=== PATIENT | male | born 1935 | race Caucasian/White ===

== ENCOUNTER 2019-10-22 14:20 | Inpatient (IN) | payer MEDICARE, MEDICAID, SELFPAY ==
[2019-10-22] VITALS (10 sets, daily range): BP systolic 103–143; BP diastolic 65–95; PULSE 80–94; RESP 15–30; TEMP 36.4–36.9; O2SAT 94–99; BMI 28.3
--- NOTE | 2019-10-22 14:23 | ED_ITS ---
Entered by Kathy Norris, acting as scribe for HPI - Weakness General: Chief complaint: General Medical, Adult Stated complaint: WEAKNESS Time Seen by Provider: 10/22/19 14:21 Source: EMS Mode of arrival: EMS History of Present Illness: HPI Narrative: per nurse the pt has had increased weakness and fatigue. pt has had a UTI per [facility] and health has been declining. pt was sent to the ED for a check up and for a UTI by nursing staff. [facility] staff denies any other symptoms. MD Complaint: generalized weakness Onset (ago): day(s) (yesterday) Duration: progressively worsening Location: generalized Severity: moderate Relieving factors: none Exacerbating factors: movement and exertion Associated symptoms: Denies chest pain, chills, easy bruising, fever(s), headache(s), nausea or vomiting Review of Systems Const: Reports: fatigue Eyes: Denies: change in vision ENMT: Denies: throat pain or mouth pain Card: Denies: chest pain Resp: Denies: shortness of breath GI: Denies: abdominal pain or diarrhea Musc: Denies: back pain or joint pain Skin/Breast: Denies: rash Neuro: Denies: behavioral changes Psych: Denies: depression Endo: Denies: excessive urination Jay[place]/Lymph: Denies: easy bruising All/Imm: Denies: hives PFSH ED PFSH: Statuses (acute, chronic, etc) shown below reflect problem list status as previously entered and may not be historically accurate Social History Smoking and tobacco status: former smoker Physical Exam Const: COMMON NORMALS: no apparent distress; negative for oriented x3 (orientated to self) EXAM LIMITATIONS: altered mental status HENMT: COMMON NORMALS: normocephalic and external nose normal HEAD & SCALP: normocephalic NOSE: external nose normal and no nasal discharge (nasal dischage) Eye: COMMON NORMALS: PERRL PUPIL: Yes PERRL Neck/C-Spine: COMMON NORMALS: full ROM and no lymphadenopathy Chest: COMMONS NORMALS: inspection of chest normal Resp: COMMON NORMALS: normal respiratory effort and clear to auscultation bilaterally AUSCULTATION: clear to auscultation bilaterally Cardio: COMMON NORMALS: regular rate and regular rhythm RATE: regular rate RHYTHM: regular rhythm GI: COMMON NORMALS: soft to palpation PALPATION: Yes soft Extremity: COMMON NORMALS: normal to inspection, full ROM and normal capillary refill Neuro: COMMON NORMALS: negative for oriented x3 (orientated to self) Psych: COMMON NORMALS: mental status grossly normal and cooperative Skin: COMMON NORMALS: no rashes or lesions noted GENERAL SKIN EXAM: no rashes or lesions noted Course Vital Signs: Vital signs: Vital Signs Temperature 97.6 F 10/22/19 14:21 Pulse Rate 84 10/22/19 16:17 Respiratory Rate 15 10/22/19 16:17 Blood Pressure 128/86 10/22/19 16:17 Pulse Oximetry 94 10/22/19 16:17 MDM - Weakness MDM Narrative: Medical decision making narrative: Patient presents here with altered mental status along with low-grade fever from [facility]. Patient has elevated white count and possible pneumonia. Patient started on Levaquin IV here and I spoke to hospitalist who will admit. Lab Data: Labs: Lab Results 10/22/19 10/22/19 10/22/19 Range/Units 14:36 14:36 14:55 WBC 15.3 H (4.0-10.0) 10^3/ uL RBC 2.57 L (4.1-5.3) 10^6/u L Hgb 7.4 L (11.7-16.6) g/dL Hct 25.5 L (42.0-52.0) % MCV 99.2 H (80-94) fL MCH 28.8 (28.0-34.0) pg MCHC 29.0 L (30.0-36.0) g/dL RDW 17.2 H (12.1-15.1) % Plt Count 238 (130-400) 10^3/c mm MPV 11.6 H (7.4-10.4) fL Neut % (Auto) 92.4 % Lymph % (Auto) 3.2 % [place] % (Auto) 3.5 % Eos % (Auto) 0.0 % Baso % (Auto) 0.1 % Neut # (Auto) 14.1 H (1.8-7.7) 10^3/u L Lymph # (Auto) 0.5 L (0.8-4.8) 10^3/u L [place] # (Auto) 0.5 (0.2-0.9) 10^3/u L Eos # (Auto) 0.0 (0.0-0.8) 10^3/u L Baso # (Auto) 0.0 (0.0-0.1) 10^3/u L Nucleated RBC % (a uto) 0.1 % Nucleated RBCs # 0.0 /100WBC Sodium 139 (136-145) mmol/L Potassium 4.0 (3.5-5.1) mmol/L Chloride 105 (98-107) mmol/L Carbon Dioxide 22 (22-29) mmol/L Anion Gap 16.0 (5-19) BUN 34 H (8-23) mg/dL Creatinine 1.3 H (0.7-1.2) mg/dL Glucose 136 H (74-106) mg/dL Calcium 9.0 (8.8-10.2) mg/Dl Total Bilirubin 1.0 (0.15-1.2) mg/dL AST 16 (0-40) U/L ALT 7 (0-41) U/L Alkaline Phosphata se 93 (40-130) IU/L Total Protein 6.8 (6.6-8.7) g/dL Albumin 2.8 L (3.5-5.2) g/dL Globulin 4.0 (1.3-4.6) g/dL Urine Color Yellow (Yellow) Urine Appearance Hazy A (CLEAR) Urine pH 5 (5-7) Ur Specific Gravit y 1.025 (1.005-1.030) Urine Protein 1+ H (Negative) Urine Glucose (UA) Norm (Normal) Urine Ketones 1+ H (Negative) Urine Occult Blood 3+ H (Negative) Urine Nitrate Negative (Negative) Urine Bilirubin Neg (NEGATIVE) Urine Urobilinogen Norm (Negative) mg/dL Ur Leukocyte Armida ase 2+ H (Negative) Urine RBC 15-25 H (0-2) /hpf Urine WBC 80-100 H (0-5) /hpf Ur Squamous Epith Cells 0-4 H (0-5) Urine Bacteria 2+ H (NONE) Urine Mucus 1+ Influenza Type A A g (Negative) POC Influenza B Ag (Negative) 10/22/19 Range/Units 15:23 WBC (4.0-10.0) 10^3/ uL RBC (4.1-5.3) 10^6/u L Hgb (11.7-16.6) g/dL Hct (42.0-52.0) % MCV (80-94) fL MCH (28.0-34.0) pg MCHC (30.0-36.0) g/dL RDW (12.1-15.1) % Plt Count (130-400) 10^3/c mm MPV (7.4-10.4) fL Neut % (Auto) % Lymph % (Auto) % [place] % (Auto) % Eos % (Auto) % Baso % (Auto) % Neut # (Auto) (1.8-7.7) 10^3/u L Lymph # (Auto) (0.8-4.8) 10^3/u L [place] # (Auto) (0.2-0.9) 10^3/u L Eos # (Auto) (0.0-0.8) 10^3/u L Baso # (Auto) (0.0-0.1) 10^3/u L Nucleated RBC % (a uto) % Nucleated RBCs # /100WBC Sodium (136-145) mmol/L Potassium (3.5-5.1) mmol/L Chloride (98-107) mmol/L Carbon Dioxide (22-29) mmol/L Anion Gap (5-19) BUN (8-23) mg/dL Creatinine (0.7-1.2) mg/dL Glucose (74-106) mg/dL Calcium (8.8-10.2) mg/Dl Total Bilirubin (0.15-1.2) mg/dL AST (0-40) U/L ALT (0-41) U/L Alkaline Phosphata se (40-130) IU/L Total Protein (6.6-8.7) g/dL Albumin (3.5-5.2) g/dL Globulin (1.3-4.6) g/dL Urine Color (Yellow) Urine Appearance (CLEAR) Urine pH (5-7) Ur Specific Gravit y (1.005-1.030) Urine Protein (Negative) Urine Glucose (UA) (Normal) Urine Ketones (Negative) Urine Occult Blood (Negative) Urine Nitrate (Negative) Urine Bilirubin (NEGATIVE) Urine Urobilinogen (Negative) mg/dL Ur Leukocyte Armida ase (Negative) Urine RBC (0-2) /hpf Urine WBC (0-5) /hpf Ur Squamous Epith Cells (0-5) Urine Bacteria (NONE) Urine Mucus Influenza Type A A g Negative (Negative) POC Influenza B Ag Negative (Negative) EKG Data^: EKG 1: Attestation: I personally reviewed and interpreted this EKG as follows: EKG interpretation date: 10/22/19 EKG interpretation time: 14:35 Interpretation: Heart rate [address] with no ST or T wave abnormalities QRS 105 QTC 409 Discharge Plan Discharge Patient Disposition: Admitted As Inpatient Clinical Impression: Pneumonia Qualifiers: Pneumonia type: due to unspecified organism Laterality: bilateral Lung location: unspecified part of lung Qualified Code(s): J18.9 - Pneumonia, unspecified organism Altered mental status Qualifiers: Altered mental status type: unspecified Qualified Code(s): R41.82 - Altered mental status, unspecified Condition: Stable Referrals: Lucy Nuñez MD [Primary Care Provider] - Coding Level of Care Code ED Anthropology And Archeology Instructor for Chg Fwd Exam Problem Focused The documentation recorded by the Jr west Bridget Annette, accurately reflects the service I personally performed and the decisions made by , Aamir Gimenez MD
--- NOTE | 2019-10-22 14:24 | ECG_ITS ---
Measurements Intervals [place] Rate: 87 P: NC: 0 QRS: -27 QRSD: 105 T: 59 QT: 365 QTc: 440 ATRIAL FIBRILLATION BORDERLINE LEFT AXIS DEVIATION [QRS AXIS < -20] NONSPECIFIC T-WAVE ABNORMALITY Compared to ECG 07/10/2019 20:25:09 T-wave abnormality now present Ventricular premature complex(es) no longer present Aberrant conduction of supraventricular beat(s) no longer present ST (T wave) deviation no longer present Electronically Signed On 10-23-2019 5:58:06 NEUROPSYCHIATRIC AIDE by Isa Cespedes M.D. [email or web address]
--- NOTE | 2019-10-22 14:24 | XRR_ITS ---
PROCEDURE INFORMATION: Exam: XR Chest, 1 View Exam date and time: 10/22/2019 2:25 PM Age: 84 years old Clinical indication: Other: Weakness TECHNIQUE: Imaging protocol: XR of the chest Views: 1 view. COMPARISON: CR Chest 1 [place] [id number] 07/10/2019 2:35 PM FINDINGS: Lungs: Nonspecific bibasilar consolidation is present, consistent with atelectasis, scarring, edema, or recurrent pneumonia. The appearance is similar to the prior exam. Pleural space: Small right pleural effusion versus pleural thickening is unchanged. Heart/Mediastinum: The heart is enlarged. Bones/joints: Osteopenia, degenerative changes and probable old fracture of the right humerus are noted. XR/XR chest 1V portable [id number] IMPRESSION: Nonspecific bibasilar consolidation is present, consistent with atelectasis, scarring, edema, or recurrent pneumonia. The appearance is similar to the prior exam.
[2019-10-22 14:41] LABS: Basophils % 0.1 %; Hematocrit 25.5 % (42.0-52.0); Hemoglobin 7.4 g/dL (11.7-16.6); Lymphocytes # 0.5 10^3/uL (0.8-4.8); Lymphocytes % 3.2 %; Mean Corpuscular Hemoglobin 28.8 pg (28.0-34.0); Mean Corpuscular Volume 99.2 fL (80-94); Mean Platelet Volume 11.6 fL (7.4-10.4); Monocytes # 0.5 10^3/uL (0.2-0.9); Monocytes % 3.5 %; Neutrophils # 14.1 10^3/uL (1.8-7.7); Neutrophils % 92.4 %; Nucleated Red Blood Cells % 0.1 %; Platelet Count 238 10^3/cmm (130-400); Red Blood Count 2.57 10^6/uL (4.1-5.3); Red Cell Distribution Width 17.2 % (12.1-15.1); White Blood Count 15.3 10^3/uL (4.0-10.0)
[2019-10-22] MEDS: sodium chloride 0.9% 500 ML IV (14:55)
[2019-10-22 14:56] LABS: Alanine Aminotransferase 7 U/L (0-41); Albumin Level 2.8 g/dL (3.5-5.2); Alkaline Phosphatase 93 IU/L (40-130); Aspartate Amino Transferase 16 U/L (0-40); Blood Urea Nitrogen 34 mg/dL (8-23); Carbon Dioxide 22 mmol/L (22-29); Chloride 105 mmol/L (98-107); Glucose 136 mg/dL (74-106); Sodium 139 mmol/L (136-145); Total Protein 6.8 g/dL (6.6-8.7)
--- NOTE | 2019-10-22 15:08 | PC.NURSE ---
Patient is not oriented to person,time,place,or situation.
--- NOTE | 2019-10-22 15:19 | PC.NURSE ---
Green discharge around left eyelid
--- NOTE | 2019-10-22 15:29 | PC.NURSE ---
Patient to CT via stretche
[2019-10-22 15:57] LABS: Influenza A by IFA Negative (Negative); Influenza B by IFA Negative (Negative)
--- NOTE | 2019-10-22 15:58 | CTR_ITS ---
PROCEDURE INFORMATION: Exam: CT Head Without Contrast Exam date and time: 10/22/2019 4:49 PM Age: 84 years old Clinical indication: Altered mental status/memory loss; Confusion or disorientation; Additional info: AMS TECHNIQUE: Imaging protocol: Computed tomography of the head without contrast. Total DLP: 1508.68 mGy-cm Radiation optimization: All CT scans at this facility use at least one of these dose optimization techniques: automated exposure control; mA and/or kV adjustment per patient size (includes targeted exams where dose is matched to clinical indication); or iterative reconstruction. COMPARISON: CT head wo con* [id number] 07/10/2019 2:11 PM FINDINGS: Brain: Stable diffuse volume loss and periventricular low-density compatible with small vessel disease change. No hemorrhage. No new white matter abnormality. No mass effect. Ventricles: Normal. No ventriculomegaly. Bones/joints: Unremarkable. No acute fracture. Sinuses: There is a small mucous retention cyst in the right maxillary sinus. Mastoid air cells: Visualized mastoid air cells are well aerated. Soft tissues: Unremarkable. CT/CT head wo con* [id number] IMPRESSION: No acute intracranial abnormality. Radiation Dose CTDIVOL = (mGy): DLP = 1508.68 (mGy-cm)
[2019-10-22 15:59] LABS: Specific Gravity, Urine 1.025 (1.005-1.030); Urine Appearance Hazy (CLEAR); Urine Color Yellow (Yellow); pH Urine 5 (5-7)
[2019-10-22 16:00] LABS: Bilirubin Urine Neg (NEGATIVE); Blood Urine 3+ (Negative); Glucose Urine UA Norm (Normal); Ketones Urine 1+ (Negative); Leukocyte Esterase Urine 2+ (Negative); Nitrate Urine Negative (Negative); Protein Urine 1+ (Negative); Urobilinogen Urine Norm (Negative)
[2019-10-22 16:01] LABS: RBC Urine 15-25 /hpf (0-2); WBC Urine 80-100 /hpf (0-5)
[2019-10-22 16:02] LABS: Add Urine Culture? Yes; Bacteria Urine 2+; Mucus Urine 1+; Squamous Epithelial Cell Urine 0-4 (0-5)
--- NOTE | 2019-10-22 16:44 | PC.NURSE ---
Patient to CT via stretcher
--- NOTE | 2019-10-22 18:21 | PC.NURSE ---
AGREE WITH ASSESSMENT
[2019-10-22] MEDS: lactated ringers 1,000 ML 100 ML IV (20:53)
[2019-10-22] MEDS: pantoprazole 40 mg SDV IVP (20:53)
--- NOTE | 2019-10-22 21:17 | P.HP_ITS ---
Providers/Chief Complaint Admitting Physician: Trenton Bahena MD Primary Care Provider: Lucy Nuñez MD Chief Complaint: WEAKNESS History of Present Illness Paul Ramsay is a 84 year old male with a past medical history of intertrochanteric right hip fracture in July 10, 2019, dementia, chronic Perez due to chronic urinary retention, chronic UTIs, history of staghorn calculus with risk of pyelonephritis, history of ESBL E. coli UTI, atrial fibrillation on Eliquis, chronic anemia, chronic back pain, right diaphragmatic hernia, who presents to the emergency room from [facility] due to concerns of altered mental status. Most of the history was provided [facility], asked during examination patient was alert oriented x0, all he complained was suprapubic pain. 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 He had a fall on 10/16/2019, fell to the floor, no head trauma. He since October 15 2019 has been on Macrobid for a UTI. Patient's nurse states that for the last 24 hours, patient has been more confused, decrease in his physical functioning, has been less sociable, has been much more weak, poor appetite. No complaints of shortness of breath. No complaints of chest pain. No falls in the last few days. No fevers. No chills. No bloody or black stools. Review of Systems Const: Reports: fatigue; Denies: fever or chills ENMT: Denies: nasal discharge Card: Reports: chest pain Resp: Denies: shortness of breath or productive cough GI: Reports: abdominal pain; Denies: nausea or vomiting : Denies: flank pain or difficulty urinating Musc: Denies: neck pain or back pain Skin/Breast: Denies: rash Neuro: Reports: weakness in extremities and difficulty walking [place]/Lymph: Denies: easy bruising Medications/Allergies Home Medications Medication Instructions Recorded Confirmed Last Taken Type apixaban [Eliquis] 2.5 mg PO BID 10/22/19 10/22/19 10/22/19 08:00 History citalopram [Celexa] 10 mg PO DAILY 10/22/19 10/22/19 10/22/19 08:00 History metoprolol tartrate 50 mg PO BID 10/22/19 10/22/19 10/22/19 08:00 History nitrofurantoin monohyd/m-cryst 100 mg PO BID 10/22/19 10/22/19 10/22/19 09:00 History [Macrobid] nut.tx,spec.frm,l-fr,iron-fos 90 ea PO DAILY 10/22/19 10/22/19 10/22/19 08:00 History [TwoCal HN] Allergies Allergy/AdvReac Type Severity Reaction Status Date / Time morphine Allergy Unknown Verified 10/22/19 14:28 PFSH Acute PFSH: Statuses (acute, chronic, etc) shown below reflect problem list status as previously entered and may not be historically accurate Medical History (Updated 10/22/19 @ 21:27 by Trenton Bahena MD) Atrial fibrillation (Acute) History of ESBL E. coli infection (Acute) Moderate aortic stenosis (Acute) Staghorn calculus (Acute) Vertebral compression fracture (Acute) Surgical History (Updated 10/22/19 @ 21:28 by Trenton Bahena MD) History of open reduction and internal fixation (ORIF) procedure (Acute) Social History Smoking and tobacco status: former smoker Supplemental PFSH Information: Unable to obtain family history as patient is confused Vitals/I&O/Wt Last Vital Signs Temp 98.5 F 10/22/19 20:00 Pulse 83 10/22/19 20:00 Resp 30 H 10/22/19 20:00 BP 103/71 10/22/19 20:00 Pulse Ox 95 10/22/19 20:00 10/22/19 10/22/19 10/22/19 06:59 14:59 22:59 Intake Total 6.667 / 6.667 Balance 6.667 / 6.667 Weight last 48 hrs Weight 74.843 kg Physical Exam Const: COMMON NORMALS: no apparent distress EXAM LIMITATIONS: altered mental status GENERAL APPEARANCE: cooperative HENMT: COMMON NORMALS: normocephalic Eye: COMMON NORMALS: PERRL Neck/C-Spine: COMMON NORMALS: full ROM and no lymphadenopathy Lymph: LYMPHATIC: no lymphadenopathy noted Chest: COMMONS NORMALS: inspection of chest normal Resp: COMMON NORMALS: normal respiratory effort, no retractions, no use of accessory muscles, clear to auscultation bilaterally and percussion normal Cardio: COMMON NORMALS: no JVD, regular rate, regular rhythm, S1 normal heart sound and S2 normal heart sound GI: COMMON NORMALS: normal to inspection, nondistended, normoactive bowel sounds and soft to palpation PALPATION: Yes tender (Patient is tender above the bladder) : COMMON NORMALS: Yes no CVA tenderness Back/Pelvis: COMMON NORMALS: no CVA tenderness Extremity: COMMON NORMALS: normal capillary refill, no clubbing, cyanosis or edema and no pedal edema Neuro: COMMON NORMALS: oriented x3, CN's II-XII intact bilaterally, moves all extremities and no focal motor deficits Psych: COMMON NORMALS: mental status grossly normal and thought process normal Sepsis: Is patient septic: No Focused sepsis exam performed: Yes Data Imaging^: CT Head: Radiologist's impression: Brain: Stable diffuse volume loss and periventricular low-density compatible with small vessel disease change. No hemorrhage. No new white matter abnormality. No mass effect. Ventricles: Normal. No ventriculomegaly. Bones/joints: Unremarkable. No acute fracture. Sinuses: There is a small mucous retention cyst in the right maxillary sinus. Mastoid air cells: Visualized mastoid air cells are well aerated. Soft tissues: Unremarkable. CXR: Radiologist's impression: Nonspecific bibasilar consolidation is present, consistent with atelectasis, scarring, edema, or recurrent pneumonia. The appearance is similar to the prior exam. A&P Assessment and plan (1) Altered mental status: Altered mental status likely secondary to multidrug-resistant UTI, chronic Perez, history of MDRO UTIs, with history of staghorn colliculi. Has high risk of pyelonephritis. -Chest x-ray shows possible pneumonia bibasilar -White blood cell count 15.3 Plan: -Gentle IV hydration, given moderate aortic stenosis -Primaxin, vancomycin -Follow urine cultures, follow blood cultures -Monitor mental status closely Status: Acute Qualifiers: Altered mental status type: unspecified Qualified Code(s): R41.82 - Altered mental status, unspecified Code(s): R41.82 - Altered mental status, unspecified (2) Anemia: -Hemoglobin 7.4 -No obvious source of bleeding Plan: -Transfuse 1 unit PRBC -Monitor hemoglobin -Hemoccult stool -Hold Eliquis Status: Acute Code(s): D64.9 - Anemia, unspecified (3) Atrial fibrillation: Telemetry monitoring Continue rate control Status: Acute Code(s): I48.91 - Unspecified atrial fibrillation (4) History of ESBL E. coli infection: Status: Acute Code(s): Z86.19 - Personal history of other infectious and parasitic diseases (5) Pneumonia: Status: Acute Qualifiers: Laterality: bilateral Lung location: unspecified part of lung Pneumonia type: due to unspecified organism Qualified Code(s): J18.9 - Pneumonia, unspecified organism Code(s): J18.9 - Pneumonia, unspecified organism (6) Urinary tract infection: Status: Acute Code(s): N39.0 - Urinary tract infection, site not specified (7) Staghorn calculus: Status: Acute Code(s): N20.0 - Calculus of kidney (8) Vertebral compression fracture: Status: Acute Code(s): M48.50XA - Collapsed vertebra, not elsewhere classified, site unspecified, initial encounter for fracture (9) Moderate aortic stenosis: Gentle IV hydration Status: Acute Code(s): I35.0 - Nonrheumatic aortic (valve) stenosis Attestations Medical Necessity Statement*: Patient requires hospitalization, greater than 2 midnights, for altered mental status secondary to UTI and pneumonia Coding Level of Care Code Acute Intern Retail for Chg Fwd Diagnoses Altered mental status R41.82 Altered mental status type: unspecified Anemia D64.9 Atrial fibrillation I48.91 History of ESBL E. coli infection Z86.19 Pneumonia J18.9 Laterality: bilateral Lung location: unspecified part of lung Pneumonia type: due to unspecified organism Urinary tract infection N39.0 Staghorn calculus N20.0 Vertebral compression fracture M48.50XA Moderate aortic stenosis I35.0 Sepsis Event Note Evaluation Current stage of sepsis: sepsis Focused Exam Vital Signs Temp Pulse Pulse Resp BP BP Pulse Ox 10/22/19 20:00 98.5 F 83 30 H 103/71 95 10/22/19 18:46 80 18 118/79 95 10/22/19 16:17 84 15 128/86 94 10/22/19 15:00 82 15 143/87 96 10/22/19 14:23 88 15 112/65 96 01/05/20 14:21 97.6 F 92 15 112/65 96 Date exam was performed: 10/22/19 Time exam was performed: 21:31 Sepsis Evaluation Sepsis screening result: No Definite Risk Current stage of sepsis: sepsis Possible source: pulmonary, genitourinary and other (UTI) Focused Exam Vital Signs Temp Pulse Pulse Resp BP BP Pulse Ox 10/22/19 20:00 98.5 F 83 30 H 103/71 95 10/22/19 18:46 80 18 118/79 95 10/22/19 16:17 84 15 128/86 94 10/22/19 15:00 82 15 143/87 96 10/22/19 14:23 88 15 112/65 96 10/22/19 14:21 97.6 F 92 15 112/65 96 Respiratory exam: Absent accessory muscle use Cardiovascular exam: Present S1 and S2; Absent tachycardia Capillary refill: > 3 Seconds Peripheral pulse strength: 3+ Normal Peripheral pulse location: Pedal Skin exam: normal turgor Date exam was performed: 10/22/19 Time exam was performed: 21:33
[2019-10-22 22:03] LABS: Iron 24 ug/dL (59-158); Percent Saturation 18.6 % (20-50); Total Iron Binding Capacity 129 mg/dL; Unsaturated Iron Binding 105 ug/dL (112-347)
[2019-10-22 22:19] LABS: Vitamin B12 1066 pg/mL (232-1245)
[2019-10-22 22:26] LABS: Ferritin 1237 ng/mL (30-400)
--- NOTE | 2019-10-22 23:44 | PC.RESP ---
nothing needed at this time. no respiratory distress noted at this time
[2019-10-23] VITALS (9 sets, daily range): BP systolic 123–162; BP diastolic 65–97; PULSE 82–100; RESP 18–28; TEMP 36.6–37.3; O2SAT 95–99
[2019-10-23] MEDS: acetaminophen 325 mg Tablet 650 MG PO ×2 (04:47→12:21)
[2019-10-23 06:10] LABS: Basophils % 0.1 %; Hematocrit 31.3 % (42.0-52.0); Hemoglobin 9.5 g/dL (11.7-16.6); Lymphocytes # 0.3 10^3/uL (0.8-4.8); Lymphocytes % 1.7 %; Mean Corpuscular HGB Conc 30.4 g/dL (30.0-36.0); Mean Corpuscular Volume 98.7 fL (80-94); Mean Platelet Volume 11.2 fL (7.4-10.4); Monocytes # 0.6 10^3/uL (0.2-0.9); Monocytes % 2.9 %; Neutrophils # 18.4 10^3/uL (1.8-7.7); Neutrophils % 94.5 %; Nucleated Red Blood Cells % 0.1 %; Platelet Count 220 10^3/cmm (130-400); Red Blood Count 3.17 10^6/uL (4.1-5.3); Red Cell Distribution Width 17.2 % (12.1-15.1); White Blood Count 19.4 10^3/uL (4.0-10.0)
[2019-10-23 06:24] LABS: Lactic Sepsis W/Reflex 3.1 mmol/L (0.5-2.2)
[2019-10-23 06:28] LABS: Alanine Aminotransferase 7 U/L (0-41); Albumin Level 2.5 g/dL (3.5-5.2); Alkaline Phosphatase 106 IU/L (40-130); Anion Gap 20.8 (5-19); Aspartate Amino Transferase 17 U/L (0-40); Blood Urea Nitrogen 36 mg/dL (8-23); Calcium 8.8 mg/Dl (8.8-10.2); Carbon Dioxide 20 mmol/L (22-29); Chloride 107 mmol/L (98-107); Globulin 4.8 g/dL (1.3-4.6); Glucose 114 mg/dL (74-106); Magnesium 2.6 mg/dL (1.7-2.3); Potassium 3.8 mmol/L (3.5-5.1); Sodium 144 mmol/L (136-145); Total Bilirubin 1.4 mg/dL (0.15-1.2); Total Protein 7.3 g/dL (6.6-8.7)
[2019-10-23 07:13] LABS: Procalcitonin 2.31 ng/mL (0-0.8)
[2019-10-23] MEDS: pantoprazole 40 mg SDV IVP ×2 (07:35→19:05)
[2019-10-23] MEDS: TRAMadol 50 mg Tablet PO (07:38)
[2019-10-23 07:54] LABS: Reflex Lactate Order Y
--- NOTE | 2019-10-23 08:00 | CT_ITS ---
WS: [id number] CT ABDOMEN PELVIS TECHNIQUE: Noncontrast CT of the abdomen and pelvis with coronal and sagittal reformatted images. CLINICAL INFORMATION: RLQ pain COMPARISON: None. DLP: 1361.[address] scans at [facility] use at least one of these dose optimization techniques: automat ed exposure control; mA and/or kV adjustment per patient size (includes targeted exams where dose is matched to clinical indication); or iterative reconstruction. FINDINGS: Noncontrast liver is normal. Cholelithiasis. Small moderate right and small left pleural effusions wi th bibasilar atelectasis. Vascular calcification including coronary. Adrenal glands are normal. Bilateral renal cortical atrophy. Bilateral renal cysts. Right renal pelvi s staghorn type calculus measuring 2.6 x 1.9 cm with chronic appearing obstruction. Moderate chronic appearing right hydronephrosis with dilatation of the renal pelvis. Additional smaller nonobstructing right renal calculi. Tiny nonobstructing left renal parenchymal subcentimeter calculi. Both mid and distal ureters are decompressed. Perez catheter. Dorsal bladder calculus measuring 2.5 cm. Tortuous calcified abdominal aorta. Ectatic common iliac arteries. 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 Pancreatic fatty atrophy. Noncontrast spleen is unremarkable. No free fluid in the pelvis. 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 Diverticulosis. No evidence of acute diverticulitis. Air and fluid-filled loops of small bowel. No evidence of high-grade obstruction. Small amount of per ihepatic ascites. Diffuse ankylosis thoracic and lumbar spine. Osteopenia. Chronic compression of the T12 and L1 vertebral bodies. Chronic right rib fractures with callus formation at the costovertebral junction. Prior postoperative changes intramedullary fernando and screw fixation right hip. CT/CT abdomen pelvis wo con [id number] IMPRESSION: 1. Cholelithiasis. This can be further evaluated with ultrasound. 2. Chronic appearing obstruction right kidney with staghorn type calculus at t he right UPJ described above. Dilatation of the right renal pelvis with moderat e right hydronephrosis. Diffuse cystic change right kidney. Cortical atrophy bi laterally. 3. Both ureters are decompressed. Perez catheter in place. Additional dorsal b ladder calculus measuring 2.4 CM. 4. Small moderate right and small left pleural effusions with bibasilar atelec tasis. 5. 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 6. Diverticulosis. 7. Small amount of perihepatic ascites. 8. Scattered air and fluid in slightly dilated small bowel likely due to ileus . No evidence of high-grade obstruction.
[2019-10-23] MEDS: metoprolol tartrate 50 mg Tablet PO ×2 (10:27→19:05)
[2019-10-23] MEDS: citalopram 20 mg Tablet 10 MG PO (10:27)
[2019-10-23] MEDS: morphine 4 mg/mL SDV 1 mL 1 MG IV (12:40)
[2019-10-23 14:04] LABS: Lactate (Lactic Acid level) 1.5 mmol/L (0.5-2.2)
[2019-10-23 14:42] LABS: Hematocrit 28.1 % (42.0-52.0); Hemoglobin 8.6 g/dL (11.7-16.6)
--- NOTE | 2019-10-23 16:08 | PC.PT ---
Addendum entered by Herman Allan II 10/23/19 16:15: Discussed previous functional level with [facility]. Nursing states 2 person stand pivot assist bed to wheelchair - wheelchair to bed. Pt has poor rehab potential. No further physical therapy at this time. Original Note: Pt tolerated therapy session with increased R heel tenderness and B knee pain with movement from supine to sitting of edge of bed. Mod assist with transfers. Pillow placed under lower leg to reduce pressure on R heel and between knees while in L side lying. Left in bed with call button and table at side and within reach.
--- NOTE | 2019-10-23 19:45 | P.PN_ITS ---
Subjective Subjective: Interval history: This morning, patient is much more alert and awake today, alert oriented x2, states that his knee is hurting him, denies fevers, denies chills, denies nausea denies vomiting,, denies chest pain, denies palpitations Overnight patient remained normotensive, afebrile, respiratory rate within normal range, saturating in the high 90s on room air, neutrophilic leukocytosis has worsened to 19.4, anion stable at 1.3, procalcitonin 2.31, status post 1 unit PRBC hemoglobin stable at 8.6, had one large black bloody bowel movement Vitals/I&O/Wt Last Vital Signs Temp 98.6 F 10/23/19 19:40 Pulse 91 10/23/19 19:40 Resp 22 H 10/23/19 19:40 BP 162/89 10/23/19 19:40 Pulse Ox 97 10/23/19 19:40 10/23/19 10/23/19 10/23/19 06:59 14:59 22:59 Intake Total 866.667 / 973.334 733.333 / 733.333 Output Total 250 / 450 Balance 616.667 / 523.334 733.333 / 733.333 Weight last 48 hrs Weight 74.843 kg Physical Exam Const: COMMON NORMALS: no apparent distress GENERAL APPEARANCE: cooperative HENMT: COMMON NORMALS: normocephalic HEAD & SCALP: normocephalic Neck/C-Spine: COMMON NORMALS: no JVD Lymph: LYMPHATIC: no lymphadenopathy noted Chest: COMMONS NORMALS: inspection of chest normal Resp: COMMON NORMALS: normal respiratory effort, no retractions, no use of accessory muscles, clear to auscultation bilaterally and percussion normal AUSCULTATION: clear to auscultation bilaterally PERCUSSION: percussion normal Cardio: COMMON NORMALS: no JVD, regular rate, regular rhythm, S1 normal heart sound and S2 normal heart sound RATE: regular rate RHYTHM: regular rhythm HEART SOUNDS: S1 normal and S2 normal GI: COMMON NORMALS: normal to inspection, nondistended, normoactive bowel sounds and soft to palpation PALPATION: Yes soft and Yes tender (Patient is tender above the bladder) Extremity: COMMON NORMALS: normal capillary refill, no clubbing, cyanosis or edema and no pedal edema Data Micro: Micro: Microbiology 10/22/19 22:32 Blood Culture - Pr eliminary Blood SPECIMEN [facility] 10/22/19 22:37 Blood Culture - Pr eliminary Blood SPECIMEN [facility] A&P Assessment and plan (1) Altered mental status: Altered mental status likely secondary to multidrug-resistant UTI, chronic Perez, history of MDRO UTIs, with history of staghorn colliculi. Has high risk of pyelonephritis. -Chest x-ray shows possible pneumonia bibasilar -White blood cell count 19.4, neutrophil leukocytosis, pro-Fernando 2.31 Plan: -Decrease hydration to 50 cc an hour, given moderate aortic stenosis -Continue Primaxin, vancomycin -Follow urine cultures, follow blood cultures -Monitor mental status closely Status: Acute Qualifiers: Altered mental status type: unspecified Qualified Code(s): R41.82 - Altered mental status, unspecified Code(s): R41.82 - Altered mental status, unspecified (2) Anemia: -Hemoglobin 8.6, status post 1 unit PRBC -No obvious source of bleeding Plan: -Monitor hemoglobin -Hemoccult stool -Hold Eliquis Status: Acute Code(s): D64.9 - Anemia, unspecified (3) Atrial fibrillation: Telemetry monitoring Continue rate control Status: Acute Code(s): I48.91 - Unspecified atrial fibrillation (4) History of ESBL E. coli infection: Status: Acute Code(s): Z86.19 - Personal history of other infectious and parasitic diseases (5) Pneumonia: Status: Acute Qualifiers: Laterality: bilateral Lung location: unspecified part of lung Pneumonia type: due to unspecified organism Qualified Code(s): J18.9 - Pneumonia, unspecified organism Code(s): J18.9 - Pneumonia, unspecified organism (6) Urinary tract infection: Status: Acute Code(s): N39.0 - Urinary tract infection, site not specified (7) Staghorn calculus: Status: Acute Code(s): N20.0 - Calculus of kidney (8) Vertebral compression fracture: Status: Acute Code(s): M48.50XA - Collapsed vertebra, not elsewhere classified, site unspecified, initial encounter for fracture (9) Moderate aortic stenosis: Gentle IV hydration Status: Acute Code(s): I35.0 - Nonrheumatic aortic (valve) stenosis Attestations Medical Necessity Statement*: She requires continued hospitalization due to altered mental status secondary to UTI, pneumonia Coding Level of Care Code Acute Senior Android Developer for Chg Fwd Diagnoses Altered mental status R41.82 Altered mental status type: unspecified Anemia D64.9 Atrial fibrillation I48.91 History of ESBL E. coli infection Z86.19 Pneumonia J18.9 Laterality: bilateral Lung location: unspecified part of lung Pneumonia type: due to unspecified organism Urinary tract infection N39.0 Staghorn calculus N20.0 Vertebral compression fracture M48.50XA Moderate aortic stenosis I35.0
--- NOTE | 2019-10-23 19:48 | PC.NURSE ---
PT STATED HE WAS IN SEVER PAIN AT APPROXIMATELY 11:00 AM, THE PT HAD BEEN GIVEN TRAMADOL AT ABOUT 07:40 AM AND HE WAS STILL HAVING PAIN, THIS NURSE ASKED DR MARTINEZ IF THRERE WAS ANYTHING ELSE I COULD GIVE HIM DUE TO HIM ONLY HAVING MORPHINE OTHER THAN HIS TRAMADOL, THAT IS SCHEDULED Q8 HOURS, AND HE HAS MORPHINE AN ALLERGY. DR MARTINEZ STATED IT WAS OK TO GIVE MORPHINE, BUT TO WATCH PT CLOSELY.
[2019-10-23 20:16] LABS: Hematocrit 27.3 % (42.0-52.0); Hemoglobin 8.5 g/dL (11.7-16.6)
[2019-10-23] MEDS: lactated ringers 1,000 ML 50 ML IV (20:21)
[2019-10-23] MEDS: HYDROcodone-acetaminophen 5-325 mg Tablet 1 TAB PO (20:40)
[2019-10-24] VITALS: BP 129/76; PULSE 90; RESP 20; TEMP 36; O2SAT 94
[2019-10-24 01:59] LABS: Basophils % 0.1 %; Eosinophils % 0.1 %; Hematocrit 28.4 % (42.0-52.0); Hemoglobin 8.5 g/dL (11.7-16.6); Lymphocytes # 0.4 10^3/uL (0.8-4.8); Lymphocytes % 2.6 %; Mean Corpuscular HGB Conc 29.9 g/dL (30.0-36.0); Mean Corpuscular Hemoglobin 30.1 pg (28.0-34.0); Mean Corpuscular Volume 100.7 fL (80-94); Mean Platelet Volume 11.4 fL (7.4-10.4); Monocytes # 0.8 10^3/uL (0.2-0.9); Monocytes % 5.5 %; Neutrophils # 12.8 10^3/uL (1.8-7.7); Neutrophils % 91.2 %; Nucleated Red Blood Cells % 0.1 %; Platelet Count 179 10^3/cmm (130-400); Red Blood Count 2.82 10^6/uL (4.1-5.3); Red Cell Distribution Width 18.1 % (12.1-15.1); White Blood Count 14.1 10^3/uL (4.0-10.0)
[2019-10-24 04:00] VITALS: BP 147/73; PULSE 99; RESP 18; TEMP 36.6; O2SAT 92
[2019-10-24 05:58] LABS: Procalcitonin 1.79 ng/mL (0-0.8)
[2019-10-24 06:12] LABS: Alanine Aminotransferase 7 U/L (0-41); Albumin Level 2.2 g/dL (3.5-5.2); Alkaline Phosphatase 85 IU/L (40-130); Anion Gap 17.7 (5-19); Aspartate Amino Transferase 18 U/L (0-40); Blood Urea Nitrogen 32 mg/dL (8-23); Calcium 8.8 mg/Dl (8.8-10.2); Carbon Dioxide 20 mmol/L (22-29); Chloride 110 mmol/L (98-107); Globulin 3.9 g/dL (1.3-4.6); Glucose 120 mg/dL (74-106); Magnesium 2.2 mg/dL (1.7-2.3); Phosphorus 2.5 mg/dL (2.5-4.5); Potassium 3.7 mmol/L (3.5-5.1); Sodium 144 mmol/L (136-145); Total Protein 6.1 g/dL (6.6-8.7)
[2019-10-24] MEDS: pantoprazole 40 mg SDV IVP ×2 (06:22→18:13)
[2019-10-24 07:26] VITALS: BP 128/64; PULSE 74; RESP 18; TEMP 37; O2SAT 96
[2019-10-24 08:29] LABS: Hematocrit 29.1 % (42.0-52.0); Hemoglobin 8.8 g/dL (11.7-16.6)
[2019-10-24] MEDS: metoprolol tartrate 50 mg Tablet PO ×2 (09:08→18:13)
[2019-10-24] MEDS: citalopram 20 mg Tablet 10 MG PO (09:08)
[2019-10-24] MEDS: HYDROcodone-acetaminophen 5-325 mg Tablet 1 TAB PO ×2 (09:08→18:13)
[2019-10-24] MEDS: lactated ringers 1,000 ML 50 ML IV ×2 (09:13→22:31)
[2019-10-24 11:12] VITALS: BP 122/64; PULSE 78; RESP 16; TEMP 36.8; O2SAT 93
[2019-10-24 12:47] LABS: Vitamin B12 741 pg/mL (232-1245)
[2019-10-24 15:07] VITALS: BP 120/68; PULSE 83; RESP 22; TEMP 36.6; O2SAT 90
--- NOTE | 2019-10-24 15:25 | P.PN_ITS ---
Subjective Subjective: Interval history: This morning, patient has no significant complaints, no fevers, no chills, no nausea, no vomiting, is answering questions a bit more appropriately, has no complaint complaints this morning Over the last 24 hours he is remained afebrile, normotensive, saturating high 90s on room air, blood cultures positive for gram-positive cocci, Vitals/I&O/Wt Last Vital Signs Temp 97.9 F 10/24/19 15:07 Pulse 83 10/24/19 15:07 Resp 22 H 10/24/19 15:07 BP 120/68 10/24/19 15:07 Pulse Ox 90 10/24/19 15:07 10/24/19 10/24/19 10/24/19 06:59 14:59 22:59 Intake Total 100 / 1266.666 863.333 / 863.333 Output Total 650 / 650 125 / 125 Balance -550 / 616.666 738.333 / 738.333 Physical Exam Const: COMMON NORMALS: no apparent distress GENERAL APPEARANCE: cooperative Neck/C-Spine: COMMON NORMALS: no JVD Chest: COMMONS NORMALS: inspection of chest normal Resp: COMMON NORMALS: normal respiratory effort, no retractions, no use of accessory muscles, clear to auscultation bilaterally and percussion normal AUSCULTATION: clear to auscultation bilaterally PERCUSSION: percussion normal Cardio: COMMON NORMALS: no JVD, regular rate, regular rhythm, S1 normal heart sound and S2 normal heart sound RATE: regular rate RHYTHM: regular rhythm HEART SOUNDS: S1 normal and S2 normal GI: COMMON NORMALS: normal to inspection, nondistended, normoactive bowel sounds and soft to palpation PALPATION: Yes soft Data Micro: Micro: Microbiology 10/22/19 22:32 Blood Culture - Pr eliminary Blood Gram positive c occi 10/22/19 22:37 Blood Culture - Pr eliminary Blood Gram positive c occi 10/22/19 14:55 Urine Culture - Pr eliminary Urine,Clean Catch 10/23/19 11:00 MRSA Culture - Fin al Nose A&P Assessment and plan (1) Altered mental status: Altered mental status likely secondary to multidrug-resistant UTI, chronic Perez, history of MDRO UTIs, with history of staghorn colliculi. Has high risk of pyelonephritis. -Chest x-ray shows possible pneumonia bibasilar -White blood cell count improved to 14.1 Plan: -Decrease hydration to 50 cc an hour, given moderate aortic stenosis -Continue Primaxin, vancomycin -Follow urine cultures, follow blood cultures -Monitor mental status closely Status: Acute Qualifiers: Altered mental status type: unspecified Qualified Code(s): R41.82 - Altered mental status, unspecified Code(s): R41.82 - Altered mental status, unspecified (2) Anemia: -Hemoglobin 8.8, status post 1 unit PRBC -No obvious source of bleeding Plan: -Monitor hemoglobin -Hemoccult stool -Hold Eliquis Status: Acute Code(s): D64.9 - Anemia, unspecified (3) Atrial fibrillation: Telemetry monitoring Continue rate control Status: Acute Code(s): I48.91 - Unspecified atrial fibrillation (4) History of ESBL E. coli infection: Status: Acute Code(s): Z86.19 - Personal history of other infectious and parasitic diseases (5) Pneumonia: Status: Acute Qualifiers: Laterality: bilateral Lung location: unspecified part of lung Pneumonia type: due to unspecified organism Qualified Code(s): J18.9 - Pneumonia, unspecified organism Code(s): J18.9 - Pneumonia, unspecified organism (6) Urinary tract infection: Status: Acute Code(s): N39.0 - Urinary tract infection, site not specified (7) Staghorn calculus: Status: Acute Code(s): N20.0 - Calculus of kidney (8) Vertebral compression fracture: Status: Acute Code(s): M48.50XA - Collapsed vertebra, not elsewhere classified, site unspecified, initial encounter for fracture (9) Moderate aortic stenosis: Gentle IV hydration Status: Acute Code(s): I35.0 - Nonrheumatic aortic (valve) stenosis Attestations Medical Necessity Statement*: She requires continued hospitalization, for gram-positive bacteremia secondary to UTI pneumonia, GI bleed Coding Level of Care Code Acute Oxyacetylene Burner for Chg Fwd Diagnoses Altered mental status R41.82 Altered mental status type: unspecified Anemia D64.9 Atrial fibrillation I48.91 History of ESBL E. coli infection Z86.19 Pneumonia J18.9 Laterality: bilateral Lung location: unspecified part of lung Pneumonia type: due to unspecified organism Urinary tract infection N39.0 Staghorn calculus N20.0 Vertebral compression fracture M48.50XA Moderate aortic stenosis I35.0
[2019-10-24 15:42] LABS: Folate Level 2.2 ng/mL (4.5-32.2)
[2019-10-24 15:55] LABS: Hematocrit 27.2 % (42.0-52.0); Hemoglobin 8.1 g/dL (11.7-16.6)
[2019-10-24 20:00] VITALS: BP 137/85; PULSE 92; RESP 20; TEMP 36.7; O2SAT 97
[2019-10-24 20:03] LABS: Hematocrit 28.4 % (42.0-52.0); Hemoglobin 8.5 g/dL (11.7-16.6)
[2019-10-25] VITALS: BP 137/84; PULSE 89; RESP 18; TEMP 36.7; O2SAT 96
[2019-10-25 01:18] LABS: Basophils % 0.1 %; Eosinophils % 0.1 %; Hematocrit 28.4 % (42.0-52.0); Hemoglobin 8.6 g/dL (11.7-16.6); Lymphocytes # 0.4 10^3/uL (0.8-4.8); Lymphocytes % 3.1 %; Mean Corpuscular HGB Conc 30.3 g/dL (30.0-36.0); Mean Corpuscular Hemoglobin 30.4 pg (28.0-34.0); Mean Corpuscular Volume 100.4 fL (80-94); Mean Platelet Volume 11.2 fL (7.4-10.4); Monocytes # 0.7 10^3/uL (0.2-0.9); Monocytes % 5.1 %; Neutrophils # 11.6 10^3/uL (1.8-7.7); Neutrophils % 91.2 %; Nucleated Red Blood Cells % 0 %; Platelet Count 161 10^3/cmm (130-400); Red Blood Count 2.83 10^6/uL (4.1-5.3); Red Cell Distribution Width 18.6 % (12.1-15.1); White Blood Count 12.7 10^3/uL (4.0-10.0)
[2019-10-25] MEDS: HYDROcodone-acetaminophen 5-325 mg Tablet 1 TAB PO ×3 (01:18→20:53)
[2019-10-25 01:38] LABS: Vancomycin Trough 21.2 ug/mL (10-15)
[2019-10-25 01:43] LABS: Procalcitonin 1.13 ng/mL (0-0.8)
[2019-10-25 01:54] LABS: Alanine Aminotransferase 7 U/L (0-41); Albumin Level 2.2 g/dL (3.5-5.2); Alkaline Phosphatase 87 IU/L (40-130); Anion Gap 16.4 (5-19); Aspartate Amino Transferase 24 U/L (0-40); Blood Urea Nitrogen 25 mg/dL (8-23); Calcium 8.8 mg/Dl (8.8-10.2); Carbon Dioxide 22 mmol/L (22-29); Chloride 113 mmol/L (98-107); Globulin 3.9 g/dL (1.3-4.6); Glucose 119 mg/dL (74-106); Phosphorus 2.3 mg/dL (2.5-4.5); Potassium 3.4 mmol/L (3.5-5.1); Sodium 148 mmol/L (136-145); Total Protein 6.1 g/dL (6.6-8.7)
[2019-10-25 05:55] VITALS: BP 127/71; PULSE 100; RESP 20; TEMP 37
[2019-10-25 06:52] LABS: Glucose Point of Care 116 mg/dL (70-110)
[2019-10-25 08:00] VITALS: BP 151/87; PULSE 110; RESP 18; TEMP 36.9; O2SAT 96
[2019-10-25] MEDS: lactated ringers 1,000 ML 50 ML IV (08:15)
[2019-10-25] MEDS: pantoprazole 40 mg SDV IVP ×2 (08:29→18:40)
[2019-10-25] MEDS: citalopram 20 mg Tablet 10 MG PO (09:24)
[2019-10-25] MEDS: metoprolol tartrate 50 mg Tablet PO ×2 (09:24→18:39)
[2019-10-25 11:37] VITALS: BP 131/77; PULSE 97; RESP 18; TEMP 36.6; O2SAT 97
--- NOTE | 2019-10-25 13:35 | PC.SOCIAL ---
IMM Page 2 of IMM explained to and signed by patient. Initialed, dated, and timed and placed in chart. Copy provided to patient.
--- NOTE | 2019-10-25 13:49 | P.PN_ITS ---
Subjective Subjective: Interval history: Overnight, patient had no significant events, remains normotensive, afebrile, saturating high in the high 90s on room air, leukocytosis has improved to 12.7, patient has no pain complaints this morning, has been eating and drinking well Vitals/I&O/Wt Last Vital Signs Temp 97.9 F 10/25/19 11:37 Pulse 97 10/25/19 11:37 Resp 18 10/25/19 11:37 BP 131/77 10/25/19 11:37 Pulse Ox 97 10/25/19 11:37 10/24/19 10/25/19 10/25/19 22:59 06:59 14:59 Intake Total 705 / 1918.333 200 / 2118.333 546.667 / 546.667 Output Total 650 / 775 250 / 1025 Balance 55 / 1143.333 -50 / 1093.333 546.667 / 546.667 Weight last 48 hrs Weight 66.678 kg Weight 65.862 kg Physical Exam Neck/C-Spine: COMMON NORMALS: no JVD Resp: COMMON NORMALS: normal respiratory effort, no retractions, no use of accessory muscles, clear to auscultation bilaterally and percussion normal AUSCULTATION: clear to auscultation bilaterally PERCUSSION: percussion normal Cardio: COMMON NORMALS: no JVD, regular rate, regular rhythm, S1 normal heart sound and S2 normal heart sound RATE: regular rate RHYTHM: regular rhythm HEART SOUNDS: S1 normal and S2 normal GI: COMMON NORMALS: normal to inspection, nondistended, normoactive bowel sounds and soft to palpation PALPATION: Yes soft : COMMON NORMALS: Yes no CVA tenderness BLADDER/KIDNEY EXAM: Yes no CVA tenderness Back/Pelvis: COMMON NORMALS: no CVA tenderness Extremity: COMMON NORMALS: normal capillary refill, no clubbing, cyanosis or edema and no pedal edema Data Micro: Micro: Microbiology 10/22/19 22:32 Blood Culture - Pr eliminary Blood Strep species, gamma-hemolytic 10/22/19 22:37 Blood Culture - Pr eliminary Blood Strep species, gamma-hemolytic 10/22/19 14:55 Urine Culture - Pr eliminary Urine,Clean Catch A&P Assessment and plan (1) Altered mental status: Altered mental status likely secondary to multidrug-resistant UTI, chronic Perez, history of MDRO UTIs, with history of staghorn colliculi. Has high risk of pyelonephritis. -Chest x-ray shows possible pneumonia bibasilar -White blood cell count improved to 12.7 Plan: -Decrease hydration to 50 cc an hour, given moderate aortic stenosis -Continue Primaxin, vancomycin -Follow urine cultures, follow blood cultures -Monitor mental status closely Status: Acute Qualifiers: Altered mental status type: unspecified Qualified Code(s): R41.82 - Altered mental status, unspecified Code(s): R41.82 - Altered mental status, unspecified (2) Anemia: -Hemoglobin 8.8, status post 1 unit PRBC -No obvious source of bleeding Plan: -Monitor hemoglobin -Hemoccult stool -Hold Eliquis Status: Acute Code(s): D64.9 - Anemia, unspecified (3) Atrial fibrillation: Telemetry monitoring Continue rate control Status: Acute Code(s): I48.91 - Unspecified atrial fibrillation (4) History of ESBL E. coli infection: Status: Acute Code(s): Z86.19 - Personal history of other infectious and parasitic diseases (5) Pneumonia: Status: Acute Qualifiers: Laterality: bilateral Lung location: unspecified part of lung Pneumon ia type: due to unspecified organism Qualified Code(s): J18.9 - Pneumonia, unspecified organism Code(s): J18.9 - Pneumonia, unspecified organism (6) Urinary tract infection: Status: Acute Code(s): N39.0 - Urinary tract infection, site not specified (7) Staghorn calculus: Status: Acute Code(s): N20.0 - Calculus of kidney (8) Vertebral compression fracture: Status: Acute Code(s): M48.50XA - Collapsed vertebra, not elsewhere classified, site unspecified, initial encounter for fracture (9) Moderate aortic stenosis: Gentle IV hydration Status: Acute Code(s): I35.0 - Nonrheumatic aortic (valve) stenosis Attestations Medical Necessity Statement*: Patient requires continued hospitalization secondary to sepsis Coding Level of Care Code Acute Barnworker Groom for Chg Fwd Diagnoses Altered mental status R41.82 Altered mental status type: unspecified Anemia D64.9 Atrial fibrillation I48.91 History of ESBL E. coli infection Z86.19 Pneumonia J18.9 Laterality: bilateral Lung location: unspecified part of lung Pneumonia type: due to unspecified organism Urinary tract infection N39.0 Staghorn calculus N20.0 Vertebral compression fracture M48.50XA Moderate aortic stenosis I35.0
[2019-10-25 15:41] VITALS: BP 163/82; PULSE 91; RESP 16; TEMP 36.6; O2SAT 94
[2019-10-25] MEDS: folic acid 1 mg Tablet PO (18:39)
[2019-10-25 20:37] VITALS: BP 154/83; PULSE 85; RESP 20; TEMP 36.9; O2SAT 90
[2019-10-26] VITALS: BP 149/93; PULSE 85; RESP 18; TEMP 36.8; O2SAT 94
[2019-10-26] MEDS: HYDROcodone-acetaminophen 5-325 mg Tablet 1 TAB PO ×2 (02:22→13:02)
[2019-10-26] MEDS: lactated ringers 1,000 ML 50 ML IV ×2 (02:27→20:48)
[2019-10-26 04:00] VITALS: BP 164/96; PULSE 97; RESP 24; TEMP 36.5; O2SAT 96
[2019-10-26 05:29] LABS: Eosinophils % 0.4 %; Hemoglobin 8.3 g/dL (11.7-16.6); Lymphocytes # 0.4 10^3/uL (0.8-4.8); Mean Corpuscular HGB Conc 29.6 g/dL (30.0-36.0); Mean Corpuscular Hemoglobin 29.2 pg (28.0-34.0); Mean Corpuscular Volume 98.6 fL (80-94); Mean Platelet Volume 11.9 fL (7.4-10.4); Monocytes # 0.6 10^3/uL (0.2-0.9); Monocytes % 5.5 %; Neutrophils # 9.9 10^3/uL (1.8-7.7); Neutrophils % 89.6 %; Nucleated Red Blood Cells % 0 %; Platelet Count 137 10^3/cmm (130-400); Red Blood Count 2.84 10^6/uL (4.1-5.3); White Blood Count 11.1 10^3/uL (4.0-10.0)
[2019-10-26 05:51] LABS: Alanine Aminotransferase 7 U/L (0-41); Albumin Level 2.5 g/dL (3.5-5.2); Alkaline Phosphatase 92 IU/L (40-130); Anion Gap 14.4 (5-19); Aspartate Amino Transferase 28 U/L (0-40); Blood Urea Nitrogen 22 mg/dL (8-23); Calcium 8.5 mg/Dl (8.8-10.2); Carbon Dioxide 22 mmol/L (22-29); Chloride 113 mmol/L (98-107); Globulin 3.5 g/dL (1.3-4.6); Glucose 125 mg/dL (74-106); Phosphorus 2.6 mg/dL (2.5-4.5); Potassium 3.4 mmol/L (3.5-5.1); Sodium 146 mmol/L (136-145); Total Bilirubin 1.1 mg/dL (0.15-1.2)
[2019-10-26] MEDS: vancomycin 1,000 MG in sodium chloride 0.9% 250 ML 250 MG IV (06:45)
[2019-10-26 08:00] VITALS: BP 181/99; PULSE 95; RESP 22; TEMP 36.5; O2SAT 95
[2019-10-26] MEDS: folic acid 1 mg Tablet PO ×2 (09:06→17:39)
[2019-10-26] MEDS: metoprolol tartrate 50 mg Tablet PO ×2 (09:06→17:39)
[2019-10-26] MEDS: citalopram 20 mg Tablet 10 MG PO (09:06)
[2019-10-26] MEDS: pantoprazole 40 mg SDV IVP ×2 (09:06→18:18)
[2019-10-26 10:00] VITALS: BMI 25.2
[2019-10-26 11:43] VITALS: BP 134/80; PULSE 93; RESP 18; TEMP 36.4; O2SAT 96
--- NOTE | 2019-10-26 12:16 | P.PN_ITS ---
Subjective Subjective: Interval history: This morning patient is much more lively, answering questions appropriately, has no significant complaints, his appetite has improved, remains afebrile, remains normotensive, doing well, has no significant complaints, is working with observational therapy when I entered the room Vitals/I&O/Wt Last Vital Signs Temp 97.5 F L 10/26/19 11:43 Pulse 93 10/26/19 11:43 Resp 18 10/26/19 11:43 BP 134/80 10/26/19 11:43 Pulse Ox 96 10/26/19 11:43 10/25/19 10/26/19 10/26/19 22:59 06:59 14:59 Intake Total 310 / 502.714 7385 / 1966.667 360 / 360 Output Total 600 / 600 Balance -290 / 611.476 3545 / 1366.667 360 / 360 Weight last 48 hrs Weight 66.678 kg Weight 66.933 kg Weight 66.678 kg Weight 65.862 kg Physical Exam Const: COMMON NORMALS: no apparent distress and oriented x3 EXAM L IMITATIONS: altered mental status GENERAL APPEARANCE: cooperative Neck/C-Spine: COMMON NORMALS: full ROM, no lymphadenopathy and no JVD Lymph: LYMPHATIC: no lymphadenopathy noted Chest: COMMONS NORMALS: inspection of chest normal Resp: COMMON NORMALS: normal respiratory effort, no retractions, no use of accessory muscles, clear to auscultation bilaterally and percussion normal AUSCULTATION: clear to auscultation bilaterally PERCUSSION: percussion normal Cardio: COMMON NORMALS: no JVD, regular rate, regular rhythm, S1 normal heart sound and S2 normal heart sound RATE: regular rate RHYTHM: regular rhythm HEART SOUNDS: S1 normal and S2 normal GI: COMMON NORMALS: normal to inspection, nondistended, normoactive bowel sounds and soft to palpation PALPATION: Yes soft and Yes tender (Patient is tender above the bladder) Extremity: COMMON NORMALS: normal capillary refill, no clubbing, cyanosis or edema and no pedal edema Neuro: COMMON NORMALS: oriented x3 Data Micro: Micro: Microbiology 10/25/19 18:14 Blood Culture - Pr eliminary Blood SPECIMEN [facility] 10/25/19 18:10 Blood Culture - Pr eliminary Blood SPECIMEN [facility] 10/22/19 22:32 Blood Culture - Pr eliminary Blood Strep species, gamma-hemolytic 10/22/19 22:37 Blood Culture - Pr eliminary Blood Strep species, gamma-hemolytic 10/22/19 14:55 Urine Culture - Pr eliminary Urine,Clean Catch A&P Assessment and plan (1) Altered mental status: Altered mental status likely secondary to multidrug-resistant UTI, chronic Perez, history of MDRO UTIs, with history of staghorn colliculi. Has high risk of pyelonephritis. -Chest x-ray shows possible pneumonia bibasilar -White blood cell count improved to 11.1 Plan: -Decrease hydration to 50 cc an hour, given moderate aortic stenosis -Continue Primaxin, vancomycin -Follow urine cultures, follow blood cultures -Monitor mental status closely Status: Acute Qualifiers: Altered mental status type: unspecified Qualified Code(s): R41.82 - Altered mental status, unspecified Code(s): R41.82 - Altered mental status, unspecified (2) Anemia: -Hemoglobin 8.8, status post 1 unit PRBC -No obvious source of bleeding Plan: -Monitor hemoglobin -Hemoccult stool -Hold Eliquis Status: Acute Code(s): D64.9 - Anemia, unspecified (3) Atrial fibrillation: Telemetry monitoring Continue rate control Status: Acute Code(s): I48.91 - Unspecified atrial fibrillation (4) History of ESBL E. coli infection: Status: Acute Code(s): Z86.19 - Personal history of other infectious and parasitic diseases (5) Pneumonia: Status: Acute Qualifiers: Laterality: bilateral Lung location: unspecified part of lung Pneumonia type: due to unspecified organism Qualified Code(s): J18.9 - Pneumoni a, unspecified organism Code(s): J18.9 - Pneumonia, unspecified organism (6) Urinary tract infection: Status: Acute Code(s): N39.0 - Urinary tract infection, site not specified (7) Staghorn calculus: Status: Acute Code(s): N20.0 - Calculus of kidney (8) Vertebral compression fracture: Status: Acute Code(s): M48.50XA - Collapsed vertebra, not elsewhere classified, site unspecified, initial encounter for fracture (9) Moderate aortic stenosis: Gentle IV hydration Status: Acute Code(s): I35.0 - Nonrheumatic aortic (valve) stenosis Attestations Medical Necessity Statement*: Patient requires continued hospitalization for sepsis secondary to UTI pneumonia Coding Level of Care Code Acute Apparatus Cleaner for Chg Fwd Diagnoses Altered mental status R41.82 Altered mental status type: unspecified Anemia D64.9 Atrial fibrillation I48.91 History of ESBL E. coli infection Z86.19 Pneumonia J18.9 Laterality: bilateral Lung location: unspecified part of lung Pneumonia type: due to unspecified organism Urinary tract infection N39.0 Staghorn calculus N20.0 Vertebral compression fracture M48.50XA Moderate aortic stenosis I35.0
[2019-10-26 15:43] VITALS: BP 128/82; PULSE 86; RESP 16; TEMP 37; O2SAT 96
[2019-10-26 19:22] VITALS: BP 145/88; PULSE 81; RESP 24; TEMP 36.3; O2SAT 94
[2019-10-27] VITALS (8 sets, daily range): BP systolic 129–151; BP diastolic 80–90; PULSE 73–97; RESP 16–30; TEMP 36.2–36.4; O2SAT 92–95
[2019-10-27] MEDS: HYDROcodone-acetaminophen 5-325 mg Tablet 1 TAB PO ×3 (00:51→19:21)
[2019-10-27] MEDS: vancomycin 1,000 MG in sodium chloride 0.9% 250 ML 250 MG IV (05:04)
[2019-10-27] MEDS: pantoprazole 40 mg SDV IVP ×2 (05:08→17:33)
[2019-10-27 07:04] LABS: Alanine Aminotransferase 6 U/L (0-41); Albumin Level 2.1 g/dL (3.5-5.2); Alkaline Phosphatase 96 IU/L (40-130); Anion Gap 12.1 (5-19); Aspartate Amino Transferase 19 U/L (0-40); Blood Urea Nitrogen 21 mg/dL (8-23); Calcium 8.2 mg/Dl (8.8-10.2); Carbon Dioxide 22 mmol/L (22-29); Chloride 113 mmol/L (98-107); Globulin 3.4 g/dL (1.3-4.6); Glucose 123 mg/dL (74-106); Magnesium 1.9 mg/dL (1.7-2.3); Phosphorus 2.3 mg/dL (2.5-4.5); Potassium 4.1 mmol/L (3.5-5.1); Sodium 143 mmol/L (136-145); Total Bilirubin 0.7 mg/dL (0.15-1.2); Total Protein 5.5 g/dL (6.6-8.7)
[2019-10-27 07:06] LABS: Basophils % 0.1 %; Eosinophils # 0.2 10^3/uL (0.0-0.8); Eosinophils % 1.8 %; Hematocrit 28.4 % (42.0-52.0); Lymphocytes # 0.5 10^3/uL (0.8-4.8); Lymphocytes % 4.5 %; Mean Corpuscular HGB Conc 28.2 g/dL (30.0-36.0); Mean Corpuscular Hemoglobin 30.4 pg (28.0-34.0); Mean Platelet Volume 12.3 fL (7.4-10.4); Monocytes # 0.7 10^3/uL (0.2-0.9); Monocytes % 6.6 %; Neutrophils # 9.5 10^3/uL (1.8-7.7); Neutrophils % 86.4 %; Nucleated Red Blood Cells % 0 %; Platelet Count 137 10^3/cmm (130-400); Red Blood Count 2.63 10^6/uL (4.1-5.3); Red Cell Distribution Width 19.6 % (12.1-15.1)
[2019-10-27] MEDS: metoprolol tartrate 50 mg Tablet PO ×2 (09:16→17:33)
[2019-10-27] MEDS: citalopram 20 mg Tablet 10 MG PO (09:16)
[2019-10-27] MEDS: folic acid 1 mg Tablet PO ×2 (09:16→17:33)
--- NOTE | 2019-10-27 11:30 | PC.SOCIAL ---
IMM Updated Page 2 of IMM updated and given to patient. Initialed, dated, and timed and placed back in chart.
--- NOTE | 2019-10-27 16:41 | PC.CHAP ---
Pastoral Care Encounter/Spiritual Assessment Type of Contact [] Declined oilfield plant and field operator visit [] Patient/Family/Request visit [] Outpatient visit [] Follow-up visit [] Physician referral [] Code/Alert [x] Routine visit [] Staff referral [] Actively dying [] Patient sleeping [] Family support [] [] Out of room [] Palliative care [] [] Receiving care in room [] Pre-surgical visit [] Trauma [] Long length of stay [] ICU visit [] Other: pre cautions Relational/Emotional Strength [] Patient feels connected with others/family/visitors/staff [] Distress [] Loneliness/isolation [] Abandonment Spirituality of Patient [] Person of Ary [] Attends Christian of their Ary [] Believes in Prayer [] Reads Bible or Synagogue materials [] There are Spiritual issues to be addressed Smoke Jumper Interventions [] Prayer [] Active listening [] Non-anxious presence [] Spiritual/emotional support [] Crisis/trauma care [] Spiritual counseling [] Bereavement support [] Provided bereavement packet [] Provided Bible/devotional materials [] Provided toy/stuffed animal, coloring book to patient or family member [] Completed spiritual assessment [] Provided Communion [] Anointing/[place]le [] Salvation [] Other: Impact on Illness or Injury [] Angry [] Fearful [] Anxious [] Often cries [] Exhaustion [] Unable to work [] Unable to attend yazdanism [] Unable to walk/stand [] Unable to read [] Unable to drive [] Unable to eat/drink [] Unable to sleep [] Unable to be with family [] Other: Summary will re visit. Time spent with patient
--- NOTE | 2019-10-27 19:32 | PM.PN ---
Subjective Subjective: Interval history: This morning patient has no significant complaints, no fevers, no chills, no nausea, no vomiting, no lightheadedness, no dizziness, no pain complaints Vitals/I&O/Wt Last Vital Signs Temp 97.5 F L 10/27/19 15:52 Pulse 86 10/27/19 15:52 Resp 20 H 10/27/19 15:52 BP 147/88 10/27/19 15:52 Pulse Ox 93 10/27/19 15:52 10/27/19 10/27/19 10/27/19 06:59 14:59 22:59 Intake Total 570.833 / 2748.333 100 / 100 100 / 200 Balance 570.833 / 1448.333 100 / 100 100 / 200 Weight last 48 hrs Weight 70.534 kg Weight 66.678 kg Weight 66.933 kg Physical Exam Const: COMMON NORMALS: no apparent distress GENERAL APPEARANCE: cooperative Eye: COMMON NORMALS: PERRL PUPIL: Yes PERRL Neck/C-Spine: COMMON NORMALS: no JVD Resp: COMMON NORMALS: normal respiratory effort, no retractions, no use of accessory muscles, clear to auscultation bilaterally and percussion normal AUSCULTATION: clear to auscultation bilaterally PERCUSSION: percussion normal Cardio: COMMON NORMALS: no JVD, regular rate, regular rhythm, S1 normal heart sound and S2 normal heart sound RATE: regular rate RHYTHM: regular rhythm HEART SOUNDS: S1 normal and S2 normal GI: COMMON NORMALS: normal to inspection, nondistended, normoactive bowel sounds and soft to palpation PALPATION: Yes soft Extremity: COMMON NORMALS: normal capillary refill, no clubbing, cyanosis or edema and no pedal edema Data Micro: Micro: Microbiology 10/22/19 22:32 Blood Culture - Pr eliminary Blood Enterococcus fa ecalis 10/22/19 22:37 Blood Culture - Pr eliminary Blood Enterococcus fa ecalis Escherichia col i esbl 10/22/19 14:55 Urine Culture - Fi nal Urine,Clean Catch 10/25/19 18:14 Blood Culture - Pr eliminary Blood NEGATIVE TO PAXTON E 10/25/19 18:10 Blood Culture - Pr eliminary Blood NEGATIVE TO PAXTON E A&P Assessment and plan (1) Altered mental status: Altered mental status likely secondary to multidrug-resistant UTI, chronic Perez, history of MDRO UTIs, with history of staghorn colliculi. Has high risk of pyelonephritis. -Patient is clinically doing better, white blood cell count 11.0, creatinine 1.0, remains afebrile -Patient's urine culture showed enterococcus and ESBL E. coli -I am quite concerned given patient's staghorn colliculi, and recurrent UTIs, now resistant E. coli, has a high risk of recurrent pyelonephritis and bacteremia -We will reach out to the family about future interventions -I did briefly speak to Dr. Vaughn, chronic suppression therapy would be a good idea, will recheck to the lab for sensitivities for Macrobid, possible considerations for staghorn colliculi pending family's wishes Plan: -Continue Primaxin, vancomycin -Pending family's approval needs PICC line placement, with ertapenem once daily, and linezolid once daily for 10 days -Followed by chronic suppressive therapy pending culture -Repeat blood culture so far unremarkable -Monitor mental status closely Status: Acute Qualifiers: Altered mental status type: unspecified Qualified Code(s): R41.82 - Altered mental status, unspecified Code(s): R41.82 - Altered mental status, unspecified (2) Anemia: -Hemoglobin 8.0, status post 1 unit PRBC -No obvious source of bleeding -Patient has a history of GI bleeds in the past Plan: -Monitor hemoglobin -We will transfuse 1 unit this morning -Hold Eliquis Status: Acute Code(s): D64.9 - Anemia, unspecified (3) Atrial fibrillation: Telemetry monitoring Continue rate control Status: Acute Code(s): I48.91 - Unspecified atrial fibrillation (4) History of ESBL E. coli infection: Status: Acute Code(s): Z86.19 - Personal history of other infectious and parasitic diseases (5) Pneumonia: Status: Acute Qualifiers: Laterality: bilateral Lung location: unspecified part of lung Pneumonia type: due to unspecified organism Qualified Code(s): J18.9 - Pneumonia, unspecified organism Code(s): J18.9 - Pneumonia, unspecified organism (6) Urinary tract infection: Status: Acute Code(s): N39.0 - Urinary tract infection, site not specified (7) Staghorn calculus: Status: Acute Code(s): N20.0 - Calculus of kidney (8) Vertebral compression fracture: Status: Acute Code(s): M48.50XA - Collapsed vertebra, not elsewhere classified, site unspecified, initial encounter for fracture (9) Moderate aortic stenosis: Stop hydration Status: Acute Code(s): I35.0 - Nonrheumatic aortic (valve) stenosis Attestations Medical Necessity Statement*: She requires continued hospitalization due to bacteremia enterococcus, ESBL E. coli, and GI bleed Coding Level of Care Code Acute Nuclear Design Engineer for Chg Fwd Diagnoses Altered mental status R41.82 Altered mental status type: unspecified Anemia D64.9 Atrial fibrillation I48.91 History of ESBL E. coli infection Z86.19 Pneumonia J18.9 Laterality: bilateral Lung location: unspecified part of lung Pneumonia type: due to unspecified organism Urinary tract infection N39.0 Staghorn calculus N20.0 Vertebral compression fracture M48.50XA Moderate aortic stenosis I35.0
[2019-10-28] VITALS (14 sets, daily range): BP systolic 114–162; BP diastolic 68–99; PULSE 73–93; RESP 20–28; TEMP 36.2–36.8; O2SAT 90–93
[2019-10-28] MEDS: HYDROcodone-acetaminophen 5-325 mg Tablet 1 TAB PO ×4 (02:39→15:13)
[2019-10-28 05:31] LABS: Basophils % 0.1 %; Eosinophils # 0.2 10^3/uL (0.0-0.8); Eosinophils % 1.5 %; Hematocrit 30.5 % (42.0-52.0); Lymphocytes # 0.5 10^3/uL (0.8-4.8); Lymphocytes % 4.1 %; Mean Corpuscular HGB Conc 29.5 g/dL (30.0-36.0); Mean Corpuscular Hemoglobin 29.2 pg (28.0-34.0); Mean Platelet Volume 12.1 fL (7.4-10.4); Monocytes # 0.7 10^3/uL (0.2-0.9); Monocytes % 5.8 %; Neutrophils # 10.1 10^3/uL (1.8-7.7); Neutrophils % 87.9 %; Nucleated Red Blood Cells % 0 %; Platelet Count 140 10^3/cmm (130-400); Red Blood Count 3.08 10^6/uL (4.1-5.3); Red Cell Distribution Width 19.4 % (12.1-15.1); White Blood Count 11.5 10^3/uL (4.0-10.0)
[2019-10-28 06:05] LABS: Alanine Aminotransferase < 5 U/L (0-41); Albumin Level 2.3 g/dL (3.5-5.2); Alkaline Phosphatase 100 IU/L (40-130); Anion Gap 13.7 (5-19); Aspartate Amino Transferase 16 U/L (0-40); Blood Urea Nitrogen 20 mg/dL (8-23); Calcium 8.4 mg/Dl (8.8-10.2); Carbon Dioxide 23 mmol/L (22-29); Chloride 108 mmol/L (98-107); Globulin 4.1 g/dL (1.3-4.6); Glucose 94 mg/dL (74-106); Magnesium 2.1 mg/dL (1.7-2.3); Phosphorus 2.6 mg/dL (2.5-4.5); Potassium 3.7 mmol/L (3.5-5.1); Sodium 141 mmol/L (136-145); Total Bilirubin 1.1 mg/dL (0.15-1.2); Total Protein 6.4 g/dL (6.6-8.7); Vancomycin Trough 24.5 ug/mL (10-15)
[2019-10-28] MEDS: pantoprazole 40 mg SDV IVP ×2 (06:55→21:17)
[2019-10-28] MEDS: citalopram 20 mg Tablet 10 MG PO (09:13)
[2019-10-28] MEDS: metoprolol tartrate 50 mg Tablet PO ×2 (09:13→21:19)
[2019-10-28] MEDS: folic acid 1 mg Tablet PO ×2 (09:13→21:19)
[2019-10-28] MEDS: TRAMadol 50 mg Tablet PO (14:16)
--- NOTE | 2019-10-28 14:18 | PC.OT ---
OT tx attempted. Nurse in room. Pt moaning in pain. Nurse recommending holding OT tx until pts pain better controlled. Therapist to attempt again tomorrow.
--- NOTE | 2019-10-28 16:16 | P.PN_ITS ---
Subjective Subjective: Interval history: Patient is complaining of joint complaints this morning, has no other significant complaints this morning I spoke to patient's son over the phone about placing a PICC line for long-term IV antibiotics, advised the risks an and benefits, patient son voiced understanding, agreeable to PICC line placement for long-term IV antibiotics Given patient's staghorn colliculi, patient will require outpatient evaluation by Dr. Vaughn for possible surgical interventions, as patient is DNR/DNI, and patient's family does not want aggressive measures, will be up to the family about how aggressive they want to be in terms of interventions, but I spoke with Dr. Vaughn over the phone, he is okay with chronic suppressive therapy after IV antibiotics, and a close follow-up with him as outpatient Vitals/I&O/Wt Last Vital Signs Temp 97.3 F L 10/28/19 15:20 Pulse 86 10/28/19 15:20 Resp 20 H 10/28/19 15:20 BP 151/81 10/28/19 15:20 Pulse Ox 93 10/28/19 15:20 10/28/19 10/28/19 10/28/19 06:59 14:59 22:59 Intake Total 600 / 1070 100 / 100 Output Total 1400 / 1400 400 / 400 Balance -800 / -330 -300 / -300 Weight last 48 hrs Weight 71.849 kg Weight 70.534 kg Physical Exam Const: COMMON NORMALS: no apparent distress EXAM LIMITATIONS: altered mental status GENERAL APPEARANCE: cooperative Neck/C-Spine: COMMON NORMALS: no JVD Resp: COMMON NORMALS: normal respiratory effort, no retractions, no use of accessory muscles, clear to auscultation bilaterally and percussion normal AUSCULTATION: clear to auscultation bilaterally PERCUSSION: percussion normal Cardio: COMMON NORMALS: no JVD, regular rate, regular rhythm, S1 normal heart sound and S2 normal heart sound RATE: regular rate RHYTHM: regular rhythm HEART SOUNDS: S1 normal and S2 normal GI: COMMON NORMALS: normal to inspection, nondistended, normoactive bowel sounds and soft to palpation PALPATION: Yes soft Data Micro: Micro: Microbiology 10/22/19 22:32 Blood Culture - Fi nal Blood Enterococcus fa ecalis 10/22/19 22:37 Blood Culture - Fi nal Blood Enterococcus fa ecalis Escherichia col i esbl A&P Assessment and plan (1) Altered mental status: Altered mental status likely secondary to multidrug-resistant UTI, chronic Perez, history of MDRO UTIs, with history of staghorn colliculi. Has high risk of pyelonephritis. -Patient is clinically doing better, white blood cell count 11.5, creatinine 0.9, remains afebrile -Patient's urine culture showed enterococcus and ESBL E. coli -I am quite concerned given patient's staghorn colliculi, and recurrent UTIs, now resistant E. coli, has a high risk of recurrent pyelonephritis and bacteremia -Patient's family is agreeable to PICC line placement for chronic IV antibiotics and, chronic suppressive therapy -I did briefly speak to Dr. Vaughn, chronic suppression therapy would be a good idea, will recheck to the lab for sensitivities for Macrobid, possible considerations for staghorn colliculi pending family's wishes Plan: -Continue Primaxin, vancomycin -Family agrees to PICC line placement, with ertapenem once daily, and linezolid once daily for 10 days -Followed by chronic suppressive therapy pending culture -Repeat blood culture so far unremarkable -Monitor mental status closely Status: Acute Qualifiers: Altered mental status type: unspecified Qualified Code(s): R41.82 - Altered mental status, unspecified Code(s): R41.82 - Altered mental status, unspecified (2) Anemia: -Hemoglobin 8.0, status post 1 unit PRBC -No obvious source of bleeding -Patient has a history of GI bleeds in the past Plan: -Monitor hemoglobin -We will transfuse 1 unit this morning -Hold Eliquis Status: Acute Code(s): D64.9 - Anemia, unspecified (3) Atrial fibrillation: Telemetry monitoring Continue rate control Status: Acute Code(s): I48.91 - Unspecified atrial fibrillation (4) History of ESBL E. coli infection: Status: Acute Code(s): Z86.19 - Personal history of other infectious and parasitic diseases (5) Pneumonia: Status: Acute Qualifiers: Laterality: bilateral Lung location: unspecified part of lung Pneumonia type: due to unspecified organism Qualified Code(s): J18.9 - Pneumonia, unspecified organism Code(s): J18.9 - Pneumonia, unspecified organism (6) Urinary tract infection: Status: Acute Code(s): N39.0 - Urinary tract infection, site not specified (7) Staghorn calculus: Status: Acute Code(s): N20.0 - Calculus of kidney (8) Vertebral compression fracture: Status: Acute Code(s): M48.50XA - Collapsed vertebra, not elsewhere classified, site unspecified, initial encounter for fracture (9) Moderate aortic stenosis: Stop hydration Status: Acute Code(s): I35.0 - Nonrheumatic aortic (valve) stenosis Attestations Medical Necessity Statement*: Patient requires continued hospitalization, for sepsis secondary to urinary tract infection Coding Level of Care Code Acute Accounts Payable Specialist for g Fwd Diagnoses Altered mental status R41.82 Altered mental status type: unspecified Anemia D64.9 Atrial fibrillation I48.91 History of ESBL E. coli infection Z86.19 Pneumonia J18.9 Laterality: bilateral Lung location: unspecified part of lung Pneumonia type: due to unspecified organism Urinary tract infection N39.0 Staghorn calculus N20.0 Vertebral compression fracture M48.50XA Moderate aortic stenosis I35.0
--- NOTE | 2019-10-28 21:48 | PC.NURSE ---
Patient cannot state NAME//ETC. Patient seems to be very lethargic, rarely opening his eyes and grunting, but patient states he is not in pain. Denny ALVAREZ
[2019-10-29] VITALS: BP 170/96; PULSE 94; RESP 24; TEMP 36.3; O2SAT 93
[2019-10-29] MEDS: HYDROcodone-acetaminophen 5-325 mg Tablet 1 TAB PO ×3 (01:37→17:16)
[2019-10-29] MEDS: TRAMadol 50 mg Tablet PO ×2 (03:13→15:09)
[2019-10-29 04:00] VITALS: BP 165/98; PULSE 94; RESP 24; TEMP 36.4; O2SAT 95
[2019-10-29] MEDS: pantoprazole 40 mg SDV IVP ×2 (06:46→17:16)
[2019-10-29 07:15] VITALS: BP 168/92; PULSE 88; RESP 22; TEMP 36.7; O2SAT 93
[2019-10-29] MEDS: folic acid 1 mg Tablet PO ×2 (08:26→17:16)
[2019-10-29] MEDS: citalopram 20 mg Tablet 10 MG PO (08:26)
[2019-10-29] MEDS: metoprolol tartrate 50 mg Tablet PO ×2 (08:26→17:17)
[2019-10-29 09:45] LABS: Eosinophils # 0.1 10^3/uL (0.0-0.8); Eosinophils % 0.8 %; Hematocrit 33.3 % (42.0-52.0); Hemoglobin 10.1 g/dL (11.7-16.6); Lymphocytes # 0.4 10^3/uL (0.8-4.8); Lymphocytes % 3.6 %; Mean Corpuscular HGB Conc 30.3 g/dL (30.0-36.0); Mean Corpuscular Hemoglobin 29.2 pg (28.0-34.0); Mean Corpuscular Volume 96.2 fL (80-94); Mean Platelet Volume 12.6 fL (7.4-10.4); Monocytes # 0.5 10^3/uL (0.2-0.9); Monocytes % 5.3 %; Neutrophils # 9.1 10^3/uL (1.8-7.7); Neutrophils % 89.5 %; Nucleated Red Blood Cells % 0 %; Platelet Count 147 10^3/cmm (130-400); Red Blood Count 3.46 10^6/uL (4.1-5.3); Red Cell Distribution Width 19.9 % (12.1-15.1); White Blood Count 10.1 10^3/uL (4.0-10.0)
[2019-10-29 09:59] LABS: Alanine Aminotransferase < 5 U/L (0-41); Albumin Level 2.2 g/dL (3.5-5.2); Alkaline Phosphatase 104 IU/L (40-130); Anion Gap 19.6 (5-19); Aspartate Amino Transferase 10 U/L (0-40); Blood Urea Nitrogen 20 mg/dL (8-23); Calcium 8.3 mg/Dl (8.8-10.2); Carbon Dioxide 22 mmol/L (22-29); Chloride 113 mmol/L (98-107); Globulin 3.9 g/dL (1.3-4.6); Glucose 127 mg/dL (74-106); Potassium 3.6 mmol/L (3.5-5.1); Sodium 151 mmol/L (136-145); Total Bilirubin 0.9 mg/dL (0.15-1.2); Total Protein 6.1 g/dL (6.6-8.7)
[2019-10-29 10:00] VITALS: BMI 26.7
[2019-10-29] MEDS: linezolid premix 600 MG/300 ML PREMIX 300 MG IV ×2 (10:48→21:08)
[2019-10-29 11:25] VITALS: BP 162/96; PULSE 74; RESP 22; TEMP 36.3; O2SAT 94
[2019-10-29 15:07] VITALS: BP 173/77; PULSE 86; RESP 20; TEMP 36.5; O2SAT 94
--- NOTE | 2019-10-29 15:07 | PM.PN ---
Subjective Subjective: Interval history: Patient has no complaints this morning, no shortness of breath complaints, no chest pain, no lightheadedness, no dizziness, Vitals/I&O/Wt Last Vital Signs Temp 97.4 F L 10/29/19 11:25 Pulse 74 10/29/19 11:25 Resp 22 H 10/29/19 11:25 BP 162/96 10/29/19 11:25 Pulse Ox 94 10/29/19 11:25 10/29/19 10/29/19 10/29/19 06:59 14:59 22:59 Intake Total 100 / 1120 460 / 460 Balance 100 / 620 460 / 460 Weight last 48 hrs Weight 70.76 kg Weight 70.817 kg Weight 71.849 kg Physical Exam Const: COMMON NORMALS: no apparent distress and oriented x3 GENERAL APPEARANCE: cooperative Neck/C-Spine: COMMON NORMALS: no JVD Lymph: LYMPHATIC: no lymphadenopathy noted Chest: COMMONS NORMALS: inspection of chest normal Resp: COMMON NORMALS: normal respiratory effort, no retractions, no use of accessory muscles, clear to auscultation bilaterally and percussion normal AUSCULTATION: clear to auscultation bilaterally PERCUSSION: percussion normal Cardio: COMMON NORMALS: no JVD, regular rate, regular rhythm, S1 normal heart sound and S2 normal heart sound RATE: regular rate RHYTHM: regular rhythm HEART SOUNDS: S1 normal and S2 normal GI: COMMON NORMALS: normal to inspection, nondistended, normoactive bowel sounds and soft to palpation PALPATION: Yes soft Extremity: COMMON NORMALS: normal capillary refill, no clubbing, cyanosis or edema and no pedal edema Neuro: COMMON NORMALS: oriented x3, CN's II-XII intact bilaterally, moves all extremities and no focal motor deficits Data Micro: Micro: Microbiology 10/22/19 22:32 Blood Culture - Fi nal Blood Enterococcus fa ecalis 10/22/19 22:37 Blood Culture - Fi nal Blood Enterococcus fa ecalis Escherichia col i esbl A&P Assessment and plan (1) Altered mental status: Altered mental status likely secondary to multidrug-resistant UTI, chronic Perez, history of MDRO UTIs, with history of staghorn colliculi. Has high risk of pyelonephritis. -Patient is clinically doing better, white blood cell count 11.5, creatinine 0.9, remains afebrile -Patient's urine culture showed enterococcus and ESBL E. coli -I am quite concerned given patient's staghorn colliculi, and recurrent UTIs, now resistant E. coli, has a high risk of recurrent pyelonephritis and bacteremia -Patient's family is agreeable to PICC line placement for chronic IV antibiotics and, chronic suppressive therapy -I did briefly speak to Dr. Vaughn, chronic suppression therapy would be a good idea, will recheck to the lab for sensitivities for Macrobid, possible considerations for staghorn colliculi pending family's wishes Plan: -Continue linezolid, and Primaxin. Discharged on linezolid 500 every 12 hours and ertapenem 1 g every 24 -Family agrees to PICC line placement, with ertapenem once daily, and linezolid once daily for a total of 14 days of antibiotics -Followed by chronic suppressive therapy pending culture, I have asked laboratory to run sensitivities for Macrobid on ESBL E. coli bacteremia -Repeat blood culture so far unremarkable -Monitor mental status closely Status: Acute Qualifiers: Altered mental status type: unspecified Qualified Code(s): R41.82 - Altered mental status, unspecified Code(s): R41.82 - Altered mental status, unspecified (2) Anemia: -[id number], status post 3 unit PRBC -No obvious source of bleeding -Patient has a history of GI bleeds in the past Plan: -Monitor hemoglobin -Hold Eliquis Status: Acute Code(s): D64.9 - Anemia, unspecified (3) Atrial fibrillation: Telemetry monitoring Continue rate control Status: Acute Code(s): I48.91 - Unspecified atrial fibrillation (4) History of ESBL E. coli infection: Status: Acute Code(s): Z86.19 - Personal history of other infectious and parasitic diseases (5) Pneumonia: Status: Acute Qualifiers: Laterality: bilateral Lung location: unspecified part of lung Pneumonia type: due to unspecified organism Qualified Code(s): J18.9 - Pneumonia, unspecified organism Code(s): J18.9 - Pneumonia, unspecified organism (6) Urinary tract infection: Status: Acute Code(s): N39.0 - Urinary tract infection, site not specified (7) Staghorn calculus: Status: Acute Code(s): N20.0 - Calculus of kidney (8) Vertebral compression fracture: Status: Acute Code(s): M48.50XA - Collapsed vertebra, not elsewhere classified, site unspecified, initial encounter for fracture (9) Moderate aortic stenosis: Stop hydration Status: Acute Code(s): I35.0 - Nonrheumatic aortic (valve) stenosis Attestations Medical Necessity Statement*: Patient requires continued hospitalization for bacteremia secondary to UTI, awaiting PICC line placement Coding Level of Care Code Acute Missile And Missile Checkout Technician for Chg Fwd Diagnoses Altered mental status R41.82 Altered mental status type: unspecified Anemia D64.9 Atrial fibrillation I48.91 History of ESBL E. coli infection Z86.19 Pneumonia J18.9 Laterality: bilateral Lung location: unspecified part of lung Pneumonia type: due to unspecified organism Urinary tract infection N39.0 Staghorn calculus N20.0 Vertebral compression fracture M48.50XA Moderate aortic stenosis I35.0
--- NOTE | 2019-10-29 18:17 | DCPLANNER ---
Pg 2 of IM updated and attempted review with pt. It is unknown whether he understood but we will reach out to family or facility before d/c.
[2019-10-29 20:00] VITALS: BP 158/92; PULSE 90; RESP 24; TEMP 36.3; O2SAT 93
[2019-10-30] VITALS: BP 144/86; PULSE 85; RESP 28; TEMP 36.4; O2SAT 92
[2019-10-30] MEDS: TRAMadol 50 mg Tablet PO (00:54)
[2019-10-30] MEDS: HYDROcodone-acetaminophen 5-325 mg Tablet 1 TAB PO ×2 (01:49→13:14)
[2019-10-30 04:00] VITALS: BP 154/90; PULSE 97; RESP 27; TEMP 36.5; O2SAT 91
[2019-10-30] MEDS: pantoprazole 40 mg SDV IVP (05:22)
[2019-10-30 07:01] LABS: Basophils % 0.1 %; Eosinophils # 0.1 10^3/uL (0.0-0.8); Eosinophils % 1.2 %; Hematocrit 34.8 % (42.0-52.0); Hemoglobin 10.3 g/dL (11.7-16.6); Lymphocytes # 0.4 10^3/uL (0.8-4.8); Lymphocytes % 4.2 %; Mean Corpuscular HGB Conc 29.6 g/dL (30.0-36.0); Mean Corpuscular Hemoglobin 29.7 pg (28.0-34.0); Mean Corpuscular Volume 100.3 fL (80-94); Mean Platelet Volume 12.6 fL (7.4-10.4); Monocytes # 0.6 10^3/uL (0.2-0.9); Monocytes % 6.1 %; Neutrophils % 87.7 %; Nucleated Red Blood Cells % 0 %; Platelet Count 155 10^3/cmm (130-400); Red Blood Count 3.47 10^6/uL (4.1-5.3); Red Cell Distribution Width 19.9 % (12.1-15.1); White Blood Count 10.3 10^3/uL (4.0-10.0)
[2019-10-30 07:15] VITALS: BP 144/82; PULSE 86; RESP 20; TEMP 36.9; O2SAT 92
[2019-10-30 07:23] LABS: Alanine Aminotransferase < 5 U/L (0-41); Albumin Level 2.2 g/dL (3.5-5.2); Alkaline Phosphatase 112 IU/L (40-130); Anion Gap 15.6 (5-19); Aspartate Amino Transferase 15 U/L (0-40); Blood Urea Nitrogen 18 mg/dL (8-23); Calcium 8.2 mg/Dl (8.8-10.2); Carbon Dioxide 20 mmol/L (22-29); Chloride 110 mmol/L (98-107); Globulin 4.2 g/dL (1.3-4.6); Glucose 115 mg/dL (74-106); Potassium 3.6 mmol/L (3.5-5.1); Sodium 142 mmol/L (136-145); Total Bilirubin 0.9 mg/dL (0.15-1.2); Total Protein 6.4 g/dL (6.6-8.7)
--- NOTE | 2019-10-30 09:57 | XR_ITS ---
WS: [id number] CHEST XRAY TECHNIQUE: Portable chest. CLINICAL INFORMATION: picc placment COMPARISON: None. FINDINGS: Right PICC line has been retracted to the mid axillary line on the final images. Heart: Cardiomegaly. Moderate pulmonary vascular congestion. Lungs: Small bilateral pleural effusions right greater than left. No focal consolidation. Bones: Normal visualized bony structures. XR/XR chest 1V portable [id number] IMPRESSION: 1. Right PICC line has been retracted to the mid axillary line. 2. Cardiomegaly with moderate pulmonary vascular congestion and small bilatera l pleural effusions.
[2019-10-30] MEDS: folic acid 1 mg Tablet PO (10:17)
[2019-10-30] MEDS: citalopram 20 mg Tablet 10 MG PO (10:17)
[2019-10-30] MEDS: metoprolol tartrate 50 mg Tablet PO (10:18)
--- NOTE | 2019-10-30 11:11 | PM.DCS ---
Discharge Providers Date of Admission: 10/22/19 17:20 Date of Discharge: 10/30/19 Attending Provider at Admission: Trenton Bahena MD Attending Provider at Discharge: Gatito Nuñez MD Primary Care Provider: Lucy Nuñez MD Diagnoses at Discharge Discharge Diagnosis (1) Altered mental status: Status: Acute Problem details: Resolved Qualifiers: Altered mental status type: unspecified Qualified Code(s): R41.82 - Altered mental status, unspecified (2) Anemia: Status: Acute Problem details: Status post transfusion of 3 units packed red blood cells. Placed on Protonix. Secondary to other comorbidities cause of anemia was not evaluated. Holding on anticoagulants and antiplatelets currently. Consider starting low-dose aspirin in the future. (3) Atrial fibrillation: Status: Acute Problem details: Rate controlled, see notation above (4) History of ESBL E. coli infection: Status: Acute Problem details: Will have 8 more days of ertapenem IV (5) Pneumonia: Status: Acute Problem details: 8 more days of IV antibiotics ertapenem, linezolid Qualifiers: Laterality: bilateral Lung location: unspecified part of lung Pneumonia type: due to unspecified organism Qualified Code(s): J18.9 - Pneumonia, unspecified organism (6) Urinary tract infection: Status: Acute Problem details: ESBL, enterococcus (7) Staghorn calculus: Status: Acute Problem details: Follow-up with urology 1 week (8) Vertebral compression fracture: Status: Acute (9) Moderate aortic stenosis: Status: Acute Problem details: Stable currently Reason for Visit Reason for Visit: Reason For Visit: WEAKNESS Hospital Course Hospital Course: Paul presented to the hospital with sepsis. He was placed on broad-spectrum antibiotics. This was thought to be urinary in origin secondary to his Perez catheter although multiple organisms grew from his urine and this was not subcultured. Ultimately he grew out enterococcus, ESBL from his blood. He also was significantly anemic, requiring 3 units of packed red blood cells. For this reason his Eliquis was discontinued. The rest of his hospital course was spent in slow steady improvement. He did have confusion on admission which cleared by the end of his hospital stay. Discharge exam cardiovascular irregular, irregular with 2/6 systolic murmur, lungs clear. He will finish 8 more days of IV antibiotics to give him a balance of 2 weeks following his last negative culture. If he has any recurrent fevers, primary care provider will need to be notified immediately. Physical Exam Narrative: EXAM NARRATIVE: See hospital course above Discharge Data Data Completed and Pending: Completed Studies During Hospitalization Category Date Time Status CT abdomen pelvis wo con [id number] Rout ine Cat Scan 10/23/19 08:[address] head wo con* 7 0450 Urgent Cat Scan 10/22/19 15:58 Completed XR chest 1V demian ble [id number] Routine Exams 10/30/19 09:57 Completed XR chest 1V demian ble [id number] Urgent Exams 10/22/19 14:24 Completed Pending at discharge Category Date Time Status Blood Culture Sta t Lab 10/25/19 18:14 Results CBC [Complete Blo od Count w/Auto] A M LABS Lab 10/31/19 04:00 Ordered CBC [Complete Blo od Count w/Auto] A LABS Lab 11/01/19 04:00 Ordered Comprehensive Met abolic Panel AM LA BS Lab 10/31/19 04:00 Ordered Comprehensive Met abolic Panel AM NM BS Lab 11/01/19 04:00 Ordered Labs from last 24 hours 10/30/19 10/30/19 06:10 06:10 WBC 10.3 H RBC 3.47 L Hgb 10.3 L Hct 34.8 L MCV 100.3 H MCH 29.7 MCHC 29.6 L RDW 19.9 H Plt Count 155 MPV 12.6 H Neut % (Auto) 87.7 Lymph % (Auto) 4.2 [place] % (Auto) 6.1 Eos % (Auto) 1.2 Baso % (Auto) 0.1 Neut # (Auto) 9.0 H Lymph # (Auto) 0.4 L [place] # (Auto) 0.6 Eos # (Auto) 0.1 Baso # (Auto) 0.0 Nucleated RBC % (a uto) 0 Nucleated RBCs # 0.0 Sodium 142 Potassium 3.6 Chloride 110 H Carbon Dioxide 20 L Anion Gap 15.6 BUN 18 Creatinine 0.9 Glucose 115 H Calcium 8.2 L Total Bilirubin 0.9 AST 15 ALT < 5 Alkaline Phosphata se 112 Total Protein 6.4 L Albumin 2.2 L Globulin 4.2 Vitals: Last Vital Signs Temp 98.4 F 10/30/19 07:15 Pulse 86 10/30/19 07:15 Resp 20 H 10/30/19 07:15 BP 144/82 01/13/20 07:15 Pulse Ox 92 10/30/19 07:15 Discharge Plan Discharge Patient Disposition: Xfer SNF Condition: Stable Prescriptions: New linezolid in dextrose 5% [Zyvox] 600 mg/300 mL Piggyback 600 mg continuous IV infusion Q12H 8 Days Qty: 4800 RF: 0 ertapenem 1 gram recon soln 1 gm IV Q24H 8 Days RF: 0 nitrofurantoin monohyd/m-cryst [Macrobid] 100 mg capsule 100 mg PO .qday 14 Days RF: 0 pantoprazole [Protonix] 40 mg tablet,delayed release (DR/EC) 40 mg PO BID 14 Days Qty: 28 RF: 0 Continued Celexa 10 mg Tablet 10 mg PO DAILY RF: 0 metoprolol tartrate 50 mg Tablet 50 mg PO BID RF: 0 TwoCal HN 0.08-2 gram-kcal/mL Liquid 90 ea PO DAILY RF: 0 Discontinued Macrobid 100 mg Capsule 100 mg PO BID RF: 0 Eliquis 2.5 mg Tablet 2.5 mg PO BID RF: 0 Discharge Orders: Discharge Order (Routine); Ordered 10/30/19 Ordered By: Gatito Nuñez Referrals: Lucy Nuñez MD [Primary Care Provider] - 1-3 days Vicente Vaughn MD [Physician] - 1 week Discharge Diet: Resume prior feeds Discharge Activity: Resume usual activity Activity Restrictions/Additional Instructions: Complete 8 more days of IV antibiotics of linezolid, ertapenem. Call for any recurrent fevers or concerns. Macrobid is to be initiated following ertapenem. Will need urology follow-up to determine if this is to be continued. Discharge Attestations Time Spent in Discharge Care*: greater than 30 min Quality Metrics Clinical Quality Measures During this hospital stay, did patient experience: None Coding Level of Care Code Acute Dispatcher Service Or Work for g Fwd Diagnoses Altered mental status R41.82 Altered mental status type: unspecified Anemia D64.9 Atrial fibrillation I48.91 History of ESBL E. coli infection Z86.19 Pneumonia J18.9 Laterality: bilateral Lung location: unspecified part of lung Pneumonia type: due to unspecified organism Urinary tract infection N39.0 Staghorn calculus N20.0 Vertebral compression fracture M48.50XA Moderate aortic stenosis I35.0
[2019-10-30 11:14] VITALS: BP 142/84; PULSE 88; RESP 20; TEMP 36.4; O2SAT 91
[2019-10-30] MEDS: linezolid premix 600 MG/300 ML PREMIX 300 MG IV (11:26)
[2019-10-30 12:07] VITALS: RESP 20; TEMP 36.4; O2SAT 91
--- NOTE | 2019-10-30 12:24 | DCPLANNER ---
*IMM* Patient received The important message from [employer]. Signed and placed in the chart. Patient now has a copy.
== END 2019-10-30 15:00 | disposition skilled nursing facility (03) | DRG 698 ==
LOC: ER 17:19 → MEDSURG 17:41
PROVIDERS: Admitting Provider Family Medicine; Emergency Provider Emergency Medicine; Family Provider Family Medicine; PCP Family Medicine; Visit Provider Internal Medicine
DX: T83.511A Infection and inflammatory reaction due to indwelling urethral catheter, initial encounter (principal); A41.9 Sepsis, unspecified organism; J18.9 Pneumonia, unspecified organism; M48.50XA Collapsed vertebra, not elsewhere classified, site unspecified, initial encounter for fracture; Z16.12 Extended spectrum beta lactamase (ESBL) resistance; N39.0 Urinary tract infection, site not specified; I48.91 Unspecified atrial fibrillation; D64.9 Anemia, unspecified; I35.0 Nonrheumatic aortic (valve) stenosis; Z87.891 Personal history of nicotine dependence; B96.20 Unspecified Escherichia coli [E. coli] as the cause of diseases classified elsewhere; Z79.01 Long term (current) use of anticoagulants; N20.0 Calculus of kidney; F03.90 Unspecified dementia, unspecified severity, without behavioral disturbance, psychotic disturbance, mood disturbance, and anxiety; Z96.0 Presence of urogenital implants; G89.29 Other chronic pain; M54.9 Dorsalgia, unspecified; Z91.81 History of falling
CPT/HCPCS: 12345; 36415; 36416; 36430; 70450; 71045; 74176; 80053; 80202; 81001; 82607; 82728; 82746; 82962; 83540; 83550; 83605; 83735; 84100; 84145; 85014; 85018; 85025; 85045; 86850; 86900; 87040; 87077; 87086; 87186; 87205; 87641; 87804; 93005; 94664; 96375; 97110; 97161; 97167; 97530; 97535; 99282; C1751; C9113; J0743; J1756; J2020; J2270; J3370; J7040; J7050; P9016

== ENCOUNTER 2019-11-01 12:45 | Outpatient (RCR) | payer MEDICARE, MEDICAID, SELFPAY ==
[2019-11-01 13:07] LABS: Anion Gap 15.1 (5-19); Blood Urea Nitrogen 18 mg/dL (8-23); Calcium 7.7 mg/Dl (8.8-10.2); Carbon Dioxide 24 mmol/L (22-29); Chloride 107 mmol/L (98-107); Glucose 117 mg/dL (74-106); Potassium 3.1 mmol/L (3.5-5.1); Sodium 143 mmol/L (136-145)
[2019-11-01 13:15] LABS: Eosinophils # 0.1 10^3/uL (0.0-0.8); Eosinophils % 0.7 %; Hematocrit 34.2 % (42.0-52.0); Hemoglobin 10.4 g/dL (11.7-16.6); Lymphocytes # 0.4 10^3/uL (0.8-4.8); Lymphocytes % 4.7 %; Mean Corpuscular HGB Conc 30.4 g/dL (30.0-36.0); Mean Corpuscular Volume 101.8 fL (80-94); Mean Platelet Volume 13.2 fL (7.4-10.4); Monocytes # 0.6 10^3/uL (0.2-0.9); Monocytes % 6.5 %; Neutrophils % 87.7 %; Nucleated Red Blood Cells % 0 %; Platelet Count 167 10^3/cmm (130-400); Red Blood Count 3.36 10^6/uL (4.1-5.3); White Blood Count 9.1 10^3/uL (4.0-10.0)
[2019-11-03 14:04] LABS: Potassium 3.9 mmol/L (3.5-5.1)
[2019-11-04 15:36] LABS: Influenza A by IFA Negative (Negative)
[2019-11-04 15:37] LABS: Influenza B by IFA Negative (Negative)
== END 2019-11-17 23:59 | disposition home or self-care (01) ==
LOC: LAB 12:45
PROVIDERS: Family Provider Family Medicine; PCP Family Medicine; Visit Provider Dermatology
DX: E87.6 Hypokalemia (principal); I10 Essential (primary) hypertension; J18.9 Pneumonia, unspecified organism; R41.82 Altered mental status, unspecified
CPT/HCPCS: 80048; 84132; 85025; 87804